=== PATIENT | male | born 1955 | race Caucasian/White ===

== ENCOUNTER 2018-09-23 09:23 | Emergency (ER) | payer OTHER, SELFPAY ==
[2018-09-23 09:35] VITALS: BP 142/96; PULSE 62; RESP 16; TEMP 37; O2SAT 97
--- NOTE | 2018-09-23 09:48 | DI.RAD.S_ITS ---
PROCEDURE: XR KNEE LT 1TO2V INDICATIONS: fall, injury, pain TECHNIQUE: 2 views of the knee were acquired. COMPARISON: None. FINDINGS: Bones: No fractures or dislocations. No suspicious bony lesions. Mild tricompartmental osteoarthritis is seen. Soft tissues: No joint effusion. No suspicious soft tissue calcifications. IMPRESSION: No acute left knee fracture or dislocation. Mild tricompartmental osteoarthritis. Dictated by: Kennedy Braun M.D. on 09/23/2018 at 10:10 Approved by: Kennedy Braun M.D. on 09/23/2018 at 10:11
--- NOTE | 2018-09-23 09:49 | DI.RAD.S_ITS ---
PROCEDURE: XR FEMUR LT MIN 2V INDICATIONS: fall, injury, pain TECHNIQUE: 2 views of the femur were acquired. COMPARISON: None. FINDINGS: Bones: Mild hip joint osteoarthritic changes are seen. No evidence of avascular necrosis. No fractures or dislocations. No suspicious bony lesions. Soft tissues: No suspicious soft tissue calcifications or masses. IMPRESSION: Left hip joint osteoarthritis. No acute left hip fracture or dislocation. No fracture is seen in proximal to mid femoral shaft. Dictated by: Kennedy Braun M.D. on 09/23/2018 at 10:03 Approved by: Kennedy Braun M.D. on 09/23/2018 at 10:10
--- NOTE | 2018-09-23 10:02 | ED_ITS ---
HPI - Extremity Injury (Lower) General Chief Complaint: Extremity Injury, Lower Stated Complaint: FELL, POSSIBLY BROKEN LEFT LEG Time Seen by Provider: 09/23/18 09:30 Source: patient and family Mode of arrival: ambulatory Limitations: no limitations History of Present Illness HPI Narrative: 63-year-old male, nonsmoker presents with a chief complaint of severe left knee pain after a fall this morning. He denies any prodromal symptoms come tripping to his fall and states that he merely slipped on a dock and in doing so been his left knee back under his weight. He now has severe pain with any range of motion or ambulation. He denies any head neck or back pain as a result of the fall. He denies any numbness, tingling or weakness. He states the majority of his pain is at the upper part of his knee. MD complaint: knee injury Onset (ago): minute(s) Type of Injury: hyperflexion Place: work Severity: moderate Relieving factors: rest Exacerbating factors: weight bearing and movement Context: fall Associated symptoms: snap/pop sensation, swelling and unable to bear weight Other symptoms: none Treatments prior to arrival: cold therapy Related Data Home Medications Medication Instructions Recorded Confirmed Antihistamine 1 tab PO PRN PRN 09/23/18 09/23/18 Glucosamine 1 tab PO DAILY 09/23/18 09/23/18 Potassium/Magnesium 1 tab PO DAILY 09/23/18 09/23/18 lisinopril 1.5 tab PO DAILY 09/23/18 09/23/18 Previous Rx's Medication Instructions Recorded hydrocodone-acetaminophen 1 tab PO Q4-6H PRN #14 tab 09/23/18 Allergies Allergy/AdvReac Type Severity Reaction Status Date / Time No Known Drug Allergies Allergy Verified 09/23/18 09:35 Review of Systems Review of Systems All systems reviewed & are unremarkable except as noted in HPI and below Constitutional Denies chills, Denies fever(s), Denies lethargy and Denies weakness Eyes Denies change in vision, Denies eye discharge, Denies irritation and Denies loss of vision ENT Ears, Nose, Mouth, and Throat: Denies change in voice, Denies neck pain and Denies sore throat Cardiovascular Denies chest pain, Denies irregular heart rhythm, Denies lightheadedness, Denies palpitations, Denies dyspnea, Denies dyspnea on exertion and Denies orthopnea Respiratory Denies cough, Denies dyspnea, Denies dyspnea on exertion and Denies wheezing Gastrointestinal Gastrointestinal: Denies abdominal pain, Denies change in bowel habits, Denies diarrhea, Denies nausea and Denies vomiting Genitourinary Denies hematuria, Denies flank pain, Denies urinary incontinence and Denies urinary urgency Musculoskeletal Reports joint swelling, Reports limited range of motion and Denies neck pain Integumentary/Breasts Denies pruritus, Denies erythema, Denies rash and Denies wounds Neurologic Denies confusion, Denies loss of vision and Denies weakness Psychiatric Denies anxiety, Denies confusion, Denies depression, Denies homicidal ideation and Denies suicidal ideation Endocrine Denies palpitations Hematologic/Lymphatic Denies easy bruising Allergic/Immunologic Denies wheezing [facility] Social History Smoking Status: Never smoker Exam Narrative Exam Narrative: 63-year-old male resting, obviously in pain, clutching his left knee Initial Vital Signs Initial Vital Signs: Vital Signs Temperature 98.6 F 09/23/18 09:35 Pulse Rate 62 09/23/18 09:35 Respiratory Rate 16 09/23/18 09:35 Blood Pressure 142/96 H 09/23/18 09:35 Pulse Oximetry 97 09/23/18 09:35 Const General: cooperative, well developed and in distress Nutritional Appearance: well nourished Orientation: alert, awake, oriented x3 and not confused [facility] Head: normal to inspection Ears: hearing grossly normal bilaterally Nose: external nose normal Face and sinus: normal facial exam Mouth: oral mucosae normal Eyes General: appearance normal, both eyes and all related structures Eyelids: eyelids normal Conjunctivae: conjunctivae normal Sclera: sclerae normal Pupils: PERRL EOM: EOM intact bilaterally Neck Neck: normal visual inspection, trachea midline, No lymphadenopathy, No midline deformity and No JVD Lymphatic: No lymphedema Chest Chest: normal inspection of the chest Resp Effort & Inspection: normal respiratory effort, able to speak in complete sentences, no respiratory distress and no use of accessory muscles Auscultation: clear to auscultation bilaterally, no rales, no rhonchi and no wheezes Cardio Rate: regular rate Rhythm: regular rhythm Heart Sounds: no click, no gallops, no murmurs and no rubs Pulses: normal peripheral pulses GI Inspection: non-distended Palpation: soft, no hepatosplenomegaly, No guarding, No pulsatile mass and No tender Auscultation: normal bowel sounds Back/Spine/Pelvis Back: No CVA tenderness Cervical Spine: cervical ROM normal and No pain with cervical ROM Thoracic/Lumbar Spine: thoracic and lumbar spine normal to inspection Skin General: no rashes or lesions noted, No jaundice and No petechiae Neuro General: alert, oriented x3, gait normal and no focal motor deficits Speech: speech normal Extrem General: full ROM, no clubbing, cyanosis or edema, no pedal edema and no calf tenderness Left lower extremity: full ROM, edema and knee (There is some pain and swelling at the superior aspect of the patella. Patient has ability to fully extend at knee) Psych Appearance: well kempt Mental Status: mental status grossly normal Attitude: cooperative Thought Content: normal and suicidality Judgment: judgment good Procedures Orthopedic Splinting/Casting Injury #1: Side: left Lower Extremity Injury Location: knee Lower Extremity Immobilizer: knee immobilizer Other Orthopedic Equipment: crutches Course Orders Ordered: ED Orders 09/23/18 11:13 CT LE LT wo con Stat Discontinued Medications Hydrocodone Bitart/Acetaminophen ([place] 5/325) 1 tab PO NOW ONE Stop: 09/23/18 10:34 Last Admin: 09/23/18 10:38 Dose: 1 tab Vital Signs - 8 hr 09/23/18 11:52 Pulse Rate 62 Respiratory Rate 18 Blood Pressure [Right Arm] 135/84 Pulse Oximetry 98 MDM - Extremity Injury (Lower) MDM Narrative Medical decision making narrative: Normal x-ray and CT would make a bony injury much less likely. There is a small amount of swelling at the superior aspect of the patella but full ability to extend at the he. There is likely involvement of the quadriceps tendon but complete rupture is incredibly unlikely. The patient has a mild amount of laxity of the MCL but patient states he tore the MCL many years ago and did not have any surgical repair. Discharge Plan Departure Patient Disposition: Home Clinical Impression: Acute internal derangement of left knee Discharge Date/Time: 09/23/18 12:28 Interventions: ED Discharge Assessment Last Done: 09/23/18 12:28 Instructions: DI for Knee Pain Activity Restrictions/Additional Instructions: *You have been diagnosed with [ left knee injury, question quadriceps tendon injury ] *What to do: *Take medications as directed *Follow up with orthopedics, call for an appointment. Let them know you were seen in the Emergency Department and that we ask that you be seen in follow up *Return to ER if you should have any new, worsening or concerning symptoms Prescriptions: New hydrocodone-acetaminophen 5-325 mg tablet 1 tab PO Q4-6H PRN (Reason: pain) Qty: 14 RF: 0 No Action Antihistamine 1 tab PO PRN PRN (Reason: Allergy Symptoms) RF: 0 Glucosamine 1 tab PO DAILY RF: 0 Potassium/Magnesium 1 tab PO DAILY RF: 0 lisinopril 1.5 tab PO DAILY RF: 0 Referrals: Cecilio Rashid MD [Physician] -
[2018-09-23] MEDS: HYDROCODONE/ACET 5/325 TABLET 1 TAB PO (10:38)
[2018-09-23 11:01] VITALS: BP 149/89; PULSE 66; RESP 16; O2SAT 98
--- NOTE | 2018-09-23 11:13 | DI.CT.S_ITS ---
PROCEDURE: CT LE LT W CON INDICATIONS: severe L knee pain, cannot ambulate, normal Xray TECHNIQUE: Noncontrast 1-1.5 mm axial sections acquired from the mid-patella to the proximal tibia, with coronal and sagittal reformats. COMPARISON: None. FINDINGS: Image quality: Excellent. Bones: No tibial, patellar or fibular fracture is seen nor is a fracture identified involving the distal femur. There is soft tissue swelling superior to the patella, and several calcifications are present in this area of soft tissue swelling. This can indicate a quadriceps tendon rupture with retraction of areas of calcific tendinitis cephalad as a result. Soft tissues: Soft tissue swelling is present above the patella, in the area of reported maximal tenderness. As discussed small scattered calcifications are present in this area of soft tissue swelling, and the quadriceps tendon cannot be identified as a discrete entity. IMPRESSION: Soft tissue swelling superior to the patella, with internal small punctate calcifications. The quadriceps tendon is not identified as a discrete normal in CT in the setting of confluent swelling, and therefore accurate assessment by this CT for presence or absence of quadriceps partial or complete tear is not possible. Depending on the clinical status followup by knee MRI to assess for quadriceps tendon rupture may be warranted. Through the joint space and involving the distal femur and the tibia and fibula and patella no definite cortical fracture is found. Dictated by: Octaviano Hall M.D. on 09/23/2018 at 11:17 Approved by: Octaviano Hall M.D. on 09/23/2018 at 11:20
[2018-09-23 11:52] VITALS: BP 135/84; PULSE 62; RESP 18; O2SAT 98
== END 2018-09-23 12:28 | disposition home or self-care (01) ==
PROVIDERS: Emergency Provider Emergency Medicine
DX: M23.92 Unspecified internal derangement of left knee (principal); W01.0XXA Fall on same level from slipping, tripping and stumbling without subsequent striking against object, initial encounter
CPT/HCPCS: 73552; 73560; 73700; 99284

== ENCOUNTER → 2018-10-12 10:07 | Outpatient (CLI) | payer OTHER, SELFPAY ==
[2018-10-12 10:29] LABS: Add Manual Diff / Slide Review NO; Basophils Percent Auto 1.2 % (0-2); Eosinophils Percent Auto 2.6 % (2-4); Hematocrit 43.4 % (41-53); Hemoglobin 14.8 g/dL (13.5-17.5); Lymphocytes Percent Auto 37.3 % (25-40); Mean Corpuscular HGB Conc 34.1 % (30-36); Mean Corpuscular Hemoglobin 31.2 PG (26-34); Mean Corpuscular Volume 91.5 fL (80-100); Monocytes Percent Auto 6.8 % (3-14); Neutrophils Absolute Auto 6100 /uL (3000-5900); Neutrophils Percent Auto 52.1 % (50-75); Platelet Count 162 X10^3/uL (150-400); Red Blood Cell Count 4.75 X10^6/uL (4.5-5.9); Red Cell Distribution Width 13.4 % (11.6-14.8); White Blood Cell Count 11.6 X10^3/uL (4.5-11.0)
== END ==
PROVIDERS: Visit Provider Orthopaedic Surgery
DX: S76.112A Strain of left quadriceps muscle, fascia and tendon, initial encounter (principal)
CPT/HCPCS: 36415; 85025

== ENCOUNTER → 2018-10-14 06:10 | Outpatient (CLI) | payer OTHER, SELFPAY ==
--- NOTE | 2018-10-14 | DI.MRI.S_ITS ---
PROCEDURE: MR KNEE LT WO CON INDICATIONS: STRAIN OF LEFT KNEE TECHNIQUE: Noncontrast sagittal PD fast spin echo and T2 fast spin echo with fat saturation, sagittal 3-D FLASH with fat saturation; coronal T1 spin echo and PD fast spin echo with fat saturation, and axial PD fast spin echo with fat saturation through the knee. COMPARISON: [facility], CR, XR KNEE LT 1TO2V, 09/23/2018, 9:49. [facility], CT, CT LE LT WO CON, 09/23/2018, 10:40. FINDINGS: Image quality: Excellent. Menisci: There is amorphous high signal intensity within the medial meniscal body, demonstrating superior and inferior articular surface extension, indicating degenerative tearing. There is linear high signal intensity obliquely traversing the posterior horn medial meniscus, demonstrating inferior articular surface extension, indicating oblique tearing. Lateral meniscus is intact. Cruciate ligaments: The anterior and posterior cruciate ligaments appear intact. Medial structures: The medial collateral ligament appears intact. Visualized portions of the pes anserinus tendons appear normal. No abnormal bursal fluid. Lateral structures: There is moderate T2 signal elevation within the lateral collateral ligament at the femoral insertion site. The long and short heads of the biceps femoris tendon appear intact. The popliteus tendon appears normal. Iliotibial band appears normal. Anterior structures: There is severe, chronic appearing thickening of the quadriceps tendon, which demonstrates severe heterogeneous T2 signal intensity throughout its visualized substance. There is a full-thickness tear of the quadriceps tendon at the patellar insertion site, with up to 6 mm of retraction of the quadriceps tendon. Moderate T2 signal elevation within the medial aspect of the patellar tendon at the patellar insertion site, as well as the distal aspect of the patellar tendon at the tibial insertion site is present. Lateral patellar subluxation is present. No femoral trochlear dysplasia or ventral trochlear prominence. No edema in the infrapatellar fat pad. Bones and cartilage: No bone marrow contusions or fractures. There is mild tricompartmental periarticular osteophyte formation. Moderate diffuse articular cartilage loss overlies the weightbearing aspects of the medial femoral condyle and medial tibial plateau. Mild diffuse articular cartilage loss overlies the weightbearing aspect of the lateral femoral condyle and lateral tibial plateau. Severe articular cartilage loss overlies the patellar apex and lateral patellar facet. Joint space: There is a large knee joint effusion, which extends anteriorly through the rupture or tendon into the prepatellar and pre-femoral space. Small o Gonzalez's cyst. Small ganglion cyst along the popliteus. Normal appearing synovial plicae are incidentally noted. IMPRESSION: 1. Full-thickness tear of the quadriceps tendon, superimposed on severe chronic tendinopathy. 2. Patellar tendinitis. 3. Medial meniscal tearing. 4. Tricompartmental osteoarthritis with associated articular cartilage loss. 5. Knee joint effusion and Gonzalez's cyst. Small ganglion cyst along the popliteus. 6. Partial-thickness lateral collateral ligament tear. Dictated by: Gael Booth M.D. on 10/14/2018 at 9:13 Approved by: Gael Booth M.D. on 10/14/2018 at 9:19
== END ==
PROVIDERS: Visit Provider Orthopaedic Surgery
DX: S76.112A Strain of left quadriceps muscle, fascia and tendon, initial encounter (principal); S83.242A Other tear of medial meniscus, current injury, left knee, initial encounter; S83.422A Sprain of lateral collateral ligament of left knee, initial encounter; M76.52 Patellar tendinitis, left knee; M17.12 Unilateral primary osteoarthritis, left knee; M25.462 Effusion, left knee; M67.462 Ganglion, left knee
CPT/HCPCS: 73721

== ENCOUNTER 2018-10-21 06:22 | Day surgery (SDC) | payer OTHER, SELFPAY ==
[2018-10-19 17:04] VITALS: BMI 38.9
[2018-10-21] MEDS: LACTATED RINGERS 1,000 ML 42 ML IV (06:58)
[2018-10-21 07:03] VITALS: BP 139/99; PULSE 76; RESP 16; TEMP 36.6; O2SAT 93; BMI 38.9
--- NOTE | 2018-10-21 07:23 | SUR.OPER ---
Addendum entered by Pavithra Gustafson R.N. 10/21/18 08:45: Large bump placed under left hip by surgeon. Original Note: Supine on padded OR bed, head on pillow, arms secured on padded arm boards at <90 degrees abduction, legs uncrossed, safety belt at thigh, tape over blanket over nonoperative leg.
--- NOTE | 2018-10-21 08:04 | PM.PREOP ---
Pre-operative Note Interval Note Pre-op Check: Yes History & Physical Reviewed by Physician and Yes Exam Performed Changes: No
--- NOTE | 2018-10-21 08:04 | PM.OP.1 ---
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 His clinical exam and MRI scan were consistent with a quad rupture. He presented for evaluation to orthopedic surgery about 3 and half weeks post injury. Surgeon: Briseida Lloyd Maintenance Operator: Juli Mcmanus Anesthesia Type: General and Peripheral nerve block Operative Notes Findings: Complete left quad rupture with torn retinaculum, adequate quality repair with adequate quad tissue Closure Type: primary Specimen(s): none sent Estimated Blood Loss (mL): 100 Blood products transfused: none Tourniquet time (min): 70 Procedure in detail: patient was brought to the operating room. He had a peripheral nerve block placed in the preoperative area for postoperative pain control. He was transferred to the OR table in the left lower extremity was prepped and draped in a standard sterile fashion after antibiotics were given and a time-out was performed. Sterile high thigh tourniquet was applied. The leg was exsanguinated and tourniquet was elevated to 250 mm of mercury. An anterior incision was made dissection was carried out through skin and subcutaneous tissues. Deep Gelpi retractors were placed. There was a complete tear in the quad and both the medial and lateral retinaculum. The soft tissues were carefully mobilized to allow good visualization of the retinaculum as well as the patellar tendon and quad tissue. Multiple stay brands of FiberWire were woven using a the jason technique into the quad tissue. Two parallel Beath pins were carefully placed through the patella and the FiberWire stitches were passed through the patella, under the patellar tendon and then tied to the inferior pole of the patella. The insertion site of the quadriceps mechanism along the patella was carefully freshened with a 15 blade prior to suture time. An additional suture anchor was also placed in the lateral aspect of the patella. The FiberWire was then woven through the quad mechanism. Multiple nonabsorbable polyester supplemental stitches were also used for both the medial and lateral retinaculum and a good quality repair was achieved. The wound was meticulously irrigated with normal saline. Tourniquet was deflated and the subcutaneous tissue was closed with a running barbed stitch. Subcuticular stitch was with a running barbed stitch. Surgical glue was used. Sterile Aquacel dressing was applied. Amando wrap was applied. Patient was placed in a long leg brace with range of motion 0-30 degrees. Complications none. 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 Fall precautions. Weightbearing as tolerated left leg.
--- NOTE | 2018-10-21 08:08 | P.OP_ITS ---
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 His clinical exam and MRI scan were consistent with a quad rupture. He presented for evaluation to orthopedic surgery about 3 and half weeks post injury. Surgeon: Briseida Lloyd Privacy Officer: Juli Mcmanus Anesthesia Type: General and Peripheral nerve block Operative Notes Findings: Complete left quad rupture with torn retinaculum, adequate quality repair with adequate quad tissue Closure Type: primary Specimen(s): none sent Estimated Blood Loss (mL): 100 Blood products transfused: none Tourniquet time (min): 70 Procedure in detail: patient was brought to the operating room. He had a peripheral nerve block placed in the preoperative area for postoperative pain control. He was transferred to the OR table in the left lower extremity was prepped and draped in a standard sterile fashion after antibiotics were given and a time-out was performed. Sterile high thigh tourniquet was applied. The leg was exsanguinated and tourniquet was elevated to 250 mm of mercury. An anterior incision was made dissection was carried out through skin and subcutaneous tissues. Deep Gelpi retractors were placed. There was a complete tear in the quad and both the medial and lateral retinaculum. The soft tissues were carefully mobilized to allow good visualization of the retinaculum as well as the patellar tendon and quad tissue. Multiple stay brands of FiberWire were woven using a the jason technique into the quad tissue. Two parallel Beath pins were carefully placed through the patella and the FiberWire stitches were passed through the patella, under the patellar tendon and then tied to the inferior pole of the patella. The insertion site of the quadriceps mechanism along the patella was carefully freshened with a 15 blade prior to suture time. An additional suture anchor was also placed in the lateral aspect of the patella. The FiberWire was then woven through the quad mechanism. Multiple nonabsorbable polyester supplemental stitches were also used for both the medial and lateral retinaculum and a good quality repair was achieved. The wound was meticulously irrigated with normal saline. Tourniquet was deflated and the subcutaneous tissue was closed with a running barbed stitch. Subcuticular stitch was with a running barbed stitch. Surgical glue was used. Sterile Aquacel dressing was applied. Amando wrap was applied. Patient was placed in a long leg brace with range of motion 0-30 degrees. Complications none. Complications: none Condition: stable Disposition: same day surgery Plan for aftercare: [employer] use of his left knee brace. Fall precautions. Weightbearing as tolerated left leg.
[2018-10-21] MEDS: CEFAZOLIN 2 GM/100 ML FROZ.PIGGY IV (08:10)
--- NOTE | 2018-10-21 08:52 | PM.PROC.1 ---
Procedures Date/Time Date of procedure: 10/21/18 Time of procedure: 07:50 General Procedure description: Ultrasound guided femoral nerve block for post op pain control after left quadriceps tendon repair surgery by Dr. Lloyd. Risk and benefits of procedure discussed with patient. ASA monitoring applied to patient. O2 given via nasal cannula. 2 mg Versed and 50 mcg fentanyl given for procedural sedation. Skin site was prepped with chlorhexidine and allowed to fully dry. Sterile gloves, mask, hat and probe cover were used to maintain sterility. 2% lidocaine and 30ga needle was used to make a small skin wheal at needle insertion site in left inguinal crease. Under ultrasound guidance, a 21ga 100mm Pajunk needle was directed toward the femoral near, just deep and lateral to the femoral artery at the level of inguinal crease. Patient reported parasthesias and muscular contraction with nerve stimulation at 0.2-0.3mV. After negative aspiration, 20 mL 0.5% ropivicaine and 10mg dexamethasone were injected around femoral nerve. Patient tolerated procedure well. Ultrasound picture was unable to be captured for records, but US imaging was used to locate inguinal structures and to avoid intravascular injection and nerve damage.
[2018-10-21] MEDS: BUPIVACAINE 0.5% W/ EPI (PF) VIAL 30 ML INJ (08:59)
[2018-10-21] MEDS: BUPIVACAINE LIPOSOME 266 MG/20 ML VIAL INJ (08:59)
[2018-10-21 10:12] VITALS: BP 128/79; PULSE 76; RESP 12; TEMP 36; O2SAT 96
[2018-10-21 10:16] VITALS: BP 137/91; PULSE 76; RESP 14; O2SAT 96
[2018-10-21 10:21] VITALS: BP 139/81; PULSE 74; RESP 12; O2SAT 95
[2018-10-21 10:47] VITALS: BP 138/91; PULSE 68; RESP 16; TEMP 36.4; O2SAT 93
--- NOTE | 2018-10-21 15:09 | SUR.PHASEII ---
Note: Delay in discharge home due initially to patient feeling he needed more time and then waiting for prescriptions to be filled.
== END 2018-10-21 11:30 | disposition home or self-care (01) ==
PROVIDERS: Visit Provider Orthopaedic Surgery
PROC: (CPT 27385; principal; 2018-10-21 07:45)
DX: S76.112A Strain of left quadriceps muscle, fascia and tendon, initial encounter (principal); G89.18 Other acute postprocedural pain; X50.1XXA Overexertion from prolonged static or awkward postures, initial encounter; W01.0XXA Fall on same level from slipping, tripping and stumbling without subsequent striking against object, initial encounter
CPT/HCPCS: 27385; 64447; C9290; J0690; J1100; J1885; J2250; J2405; J2704; J2795; J3010

== ENCOUNTER → 2018-11-19 08:53 | Outpatient (CLI) | payer OTHER, SELFPAY ==
[2018-11-19 09:20] LABS: Appearance Urine UA CLEAR; Bilirubin Urine UA NEGATIVE (NEGATIVE); Color Urine UA YELLOW; Glucose Urine UA NEGATIVE (Negative); Ketones Urine UA NEGATIVE (NEGATIVE); Leukocyte Esterase Urine UA NEGATIVE (NEGATIVE); Nitrite Urine UA NEGATIVE (Negative); Occult Blood Urine UA NEGATIVE (Negative); Protein Urine UA NEGATIVE (Negative); Specific Gravity Urine UA <=1.005 (1.000-1.035); Urobilinogen Urine UA 0.2 E.U./dL (0.2)
[2018-11-19 09:23] LABS: Add Manual Diff / Slide Review NO; Basophils Percent Auto 1.1 % (0-2); Eosinophils Percent Auto 6.6 % (2-4); Hematocrit 41.3 % (41-53); Hemoglobin 14.4 g/dL (13.5-17.5); Lymphocytes Percent Auto 37.9 % (25-40); Mean Corpuscular HGB Conc 34.9 % (30-36); Mean Corpuscular Hemoglobin 31.5 PG (26-34); Mean Corpuscular Volume 90.4 fL (80-100); Monocytes Percent Auto 7.2 % (3-14); Neutrophils Absolute Auto 4500 /uL (1500-7000); Neutrophils Percent Auto 47.2 % (50-75); Platelet Count 149 X10^3/uL (150-400); Red Blood Cell Count 4.57 X10^6/uL (4.5-5.9); Red Cell Distribution Width 13.6 % (11.6-14.8); White Blood Cell Count 9.6 X10^3/uL (4.5-11.0)
[2018-11-19 09:40] LABS: Alanine Aminotransferase 27 IU/L (21-72); Albumin 4.2 g/dL (3.5-5.0); Albumin Globulin Ratio 1.9 (1.0-2.8); Alkaline Phosphatase 57 U/L (38-126); Aspartate Aminotransferase 18 IU/L (17-59); Blood Urea Nitrogen 18 mg/dL (9-20); Calcium 9.4 mg/dL (8.4-10.2); Carbon Dioxide 24 mmol/L (22-32); Chloride 104 mmol/L (98-107); Cholesterol 190 mg/dL (140-199); Estimated Glomerular Filt Rate > 60.0 mL/min (>60); Globulin 2.2 g/dL (1.7-4.1); Glucose 109 mg/dL (80-110); HDL Cholesterol 41 mg/dL (40-60); HEMOLYSIS < 15 (0-50); LDL Cholesterol Calculated 115 mg/dL (<100); Potassium 4.4 mmol/L (3.4-5.1); Sodium 138 mmol/L (137-145); Total Protein 6.4 g/dL (6.3-8.2); Triglycerides 168 mg/dL (35-150)
[2018-11-19 10:08] LABS: Prostate Specific Antigen Scrn 0.715 ng/mL (0.1-4.0)
[2018-11-19 10:44] LABS: Thyroid Stimulating Hormone 4.24 uIU/mL (0.47-4.68)
== END ==
PROVIDERS: Family Provider Orthopaedic Surgery; PCP Family Medicine; Visit Provider Family Medicine
DX: I10 Essential (primary) hypertension (principal); Z12.5 Encounter for screening for malignant neoplasm of prostate; Z51.81 Encounter for therapeutic drug level monitoring
CPT/HCPCS: 36415; 80053; 80061; 81003; 84443; 85025; G0103

== ENCOUNTER 2019-01-18 10:08 | Emergency (ER) | payer OTHER, SELFPAY ==
[2019-01-18 10:11] VITALS: BP 174/100; PULSE 68; RESP 20; TEMP 36.7; O2SAT 97; BMI 37.3
[2019-01-18 11:50] VITALS: BP 157/90; PULSE 68; O2SAT 97
[2019-01-18] MEDS: ONDANSETRON 4 MG/2 ML INJ IV (11:58)
[2019-01-18] MEDS: SODIUM CHLORIDE 0.9% 1,000 ML 200 ML IV (11:58)
--- NOTE | 2019-01-18 12:06 | ED.ABDPAIN ---
HPI - Abdominal Pain <ASIM Sanchez - Last Filed: 01/18/19 21:46> General Chief Complaint: Abdominal Pain Stated Complaint: abd pain. vomiting Time Seen by Provider: 01/18/19 11:52 Source: patient Mode of arrival: ambulatory Limitations: no limitations History of Present Illness HPI narrative: 63-year-old male with history here for complaint of generalized upper abdominal pain and nausea vomiting over the past couple of days. Patient states that he drank some bloody Gi's a couple of days ago and states they tasted strange. No known fevers. Last bowel movement was earlier today and states was loose. He denies that other contacts have had similar symptoms. He denies any stressors or relievers of his symptoms. Denies any urinary symptoms. He has been able to tolerate some p.o. intake however is decreased due to the nausea and vomiting. He denies any trauma to the abdomen. No other concerns or complaints at this timeframe. Related Data Home Medications Medication Instructions Recorded Confirmed Glucosamine 1 tab PO DAILY 09/23/18 01/18/19 Potassium/Magnesium 1 tab PO DAILY 09/23/18 01/18/19 albuterol sulfate [Ventolin HFA] 1 puff INHALATION Q6H PRN 01/18/19 01/18/19 lisinopril 30 mg PO DAILY 01/18/19 01/18/19 Previous Rx's Medication Instructions Recorded ondansetron 4 mg PO Q6-8H PRN #8 tab 01/18/19 Allergies Allergy/AdvReac Type Severity Reaction Status Date / Time No Known Drug Allergies Allergy Verified 01/18/19 10:11 Review of Systems <ASIM Sanchez - Last Filed: 01/18/19 21:46> Eyes Denies change in vision, Denies eye discharge, Denies irritation and Denies loss of vision ENT Ears, Nose, Mouth, and Throat: Denies change in voice, Denies neck pain and Denies sore throat Cardiovascular Denies chest pain, Denies irregular heart rhythm, Denies lightheadedness, Denies palpitations, Denies dyspnea, Denies dyspnea on exertion and Denies orthopnea Respiratory Denies cough, Denies dyspnea, Denies dyspnea on exertion and Denies wheezing Gastrointestinal Gastrointestinal: Reports abdominal pain, Reports loose stools and Reports vomiting Genitourinary Denies hematuria, Denies flank pain, Denies urinary incontinence and Denies urinary urgency Musculoskeletal Denies neck pain Neurologic Denies loss of vision Endocrine Denies palpitations Allergic/Immunologic Denies wheezing PFSH <ASIM Sanchez - Last Filed: 01/18/19 21:46> Medical History Arthritis (Acute) Fracture (Acute) Knee pain (Acute) Rectal fissure (Acute) Asthma (Chronic ~1984) Hypertension (Chronic) Sciatica (Chronic ~2017) Hepatitis A (Resolved ~2012) MRSA (methicillin resistant Staphylococcus aureus) (Resolved ~2016) Surgical History Rupture of left quadriceps tendon (Acute ~09/2018) Anesthesia (Resolved) H/O hernia repair (Resolved) History of vasectomy (Resolved) Social History household members: spouse Smoking Status: Never smoker Social History household members: spouse Smoking Status: Never smoker Exam <ASIM Sanchez - Last Filed: 01/18/19 21:46> Initial Vital Signs Initial Vital Signs: Vital Signs Temperature 98.0 F 01/18/19 10:11 Pulse Rate 68 01/18/19 10:11 Respiratory Rate 20 01/18/19 10:11 Blood Pressure 174/100 H 01/18/19 10:11 Pulse Oximetry 97 01/18/19 10:11 Const General: cooperative and well developed Nutritional Appearance: well nourished Orientation: alert, awake, oriented x3 and not confused [facility] Mouth: oral mucosae normal and mucous membranes abnormal Eyes General: appearance normal, both eyes and all related structures Conjunctivae: conjunctivae normal Sclera: sclerae normal Pupils: PERRL EOM: EOM intact bilaterally Resp Effort & Inspection: normal respiratory effort, able to speak in complete sentences, no respiratory distress and no use of accessory muscles Auscultation: clear to auscultation bilaterally, no rales, no rhonchi and no wheezes Cardio Rate: regular rate Rhythm: regular rhythm Heart Sounds: no click, no gallops, no murmurs and no rubs GI Inspection: non-distended Palpation: soft, no hepatosplenomegaly, No guarding, No pulsatile mass and tender (Tenderness to epigastric area) Auscultation: normal bowel sounds Skin General: no rashes or lesions noted, No jaundice and No petechiae Neuro General: alert, oriented x3, gait normal and no focal motor deficits Speech: speech normal <Dee Dee Zuniga DO - Last Filed: 01/27/19 14:39> Initial Vital Signs Initial Vital Signs: Vital Signs Temperature 98.0 F 01/18/19 10:11 Pulse Rate 68 01/18/19 10:11 Respiratory Rate 20 01/18/19 10:11 Blood Pressure 174/100 H 01/18/19 10:11 Pulse Oximetry 97 01/18/19 10:11 Course <ASIM Sanchez - Last Filed: 01/18/19 21:46> Orders Ordered: Discontinued Medications Sodium Chloride (Normal Saline 0.9%) 1,000 mls @ 200 mls/hr IV [facility] Last Admin: 01/18/19 11:58 Dose: 200 mls/hr Ondansetron HCl (Zofran) 4 mg IV NOW ONE Stop: 01/18/19 11:53 Last Admin: 01/18/19 11:58 Dose: 4 mg Vital Signs - 8 hr 01/18/19 14:20 01/18/19 15:40 Pulse Rate 69 70 Respiratory Rate 18 20 Blood Pressure [Right Arm] 182/106 H 164/104 H Pulse Oximetry 95 97 <Dee Dee Zuniga DO - Last Filed: 01/27/19 14:39> Orders Ordered: Discontinued Medications Sodium Chloride (Normal Saline 0.9%) 1,000 mls @ 200 mls/hr IV [facility] Last Admin: 01/18/19 11:58 Dose: 200 mls/hr Ondansetron HCl (Zofran) 4 mg IV NOW ONE Stop: 01/18/19 11:53 Last Admin: 01/18/19 11:58 Dose: 4 mg Vital Signs - 8 hr 01/18/19 14:20 01/18/19 15:40 Pulse Rate 69 70 Respiratory Rate 18 20 Blood Pressure [Right Arm] 182/106 H 164/104 H Pulse Oximetry 95 97 MDM - Abdominal Pain <ASIM Sanchez - Last Filed: 01/18/19 21:46> Lab Data Result diagrams: 01/18/19 11:50 01/18/19 11:50 Lab Results 01/18/19 01/18/19 Range/Units 11:50 11:50 WBC 11.3 H (4.5-11.0) X10^3/uL RBC 5.20 (4.5-5.9) X10^6/uL Hgb 16.1 (13.5-17.5) g/dL Hct 47.6 (41-53) % MCV 91.6 (80-100) fL MCH 31.0 (26-34) PG MCHC 33.9 (30-36) % RDW 14.0 (11.6-14.8) % Plt Count 162 (150-400) X10^3/uL Neut % (Auto) 62.5 (50-75) % Lymph % (Auto) 26.4 (25-40) % Baker % (Auto) 6.9 (3-14) % Eos % (Auto) 3.2 (2-4) % Baso % (Auto) 1.0 (0-2) % Neut # (Auto) 7100 H (7128-0127) /uL Lymph # (Auto) 3000 (7245-8212) /uL Baker # (Auto) 800 (0-900) /uL Eos # (Auto) 400 (0-450) /uL Baso # (Auto) 100 (0-100) /uL Sodium 138 (137-145) mmol/L Potassium 4.4 (3.4-5.1) mmol/L Chloride 104 (98-107) mmol/L Carbon Dioxide 24 (22-32) mmol/L BUN 18 (9-20) mg/dL Creatinine 0.90 (0.66-1.25) mg/dL Estimated GFR > 60.0 (>60) mL/min BUN/Creatinine Ratio 20.0 (6-22) Glucose 113 H (80-110) mg/dL Calcium 9.7 (8.4-10.2) mg/dL Total Bilirubin 0.8 (0.2-1.3) mg/dL AST 19 (17-59) IU/L ALT 32 (21-72) IU/L Alkaline Phosphatase 56 (38-126) U/L Total Protein 7.0 (6.3-8.2) g/dL Albumin 4.6 (3.5-5.0) g/dL Globulin 2.4 (1.7-4.1) g/dL Albumin/Globulin Ratio 1.9 (1.0-2.8) Lipase 91 (23-300) U/L Point of care testing: Urine Dip Bedside Urine Glucose Negative Bedside Urine Bilirubin - Negative Bedside Urine Ketone - Negative Urine Specific [place] 1.015 Bedside Urine Occult Blood - Negative Bedside Urine pH 6.0 Bedside Urine Protein - Negative Bedside Urine Urobilinogen - Negative Bedside Urine Nitrite - Negative Bedside Urine Leukocytes - Negative Esterase MDM Narrative Medical decision making narrative: CBC shows elevated white count of 11 0.5 kg and mildly elevated neutrophils. Otherwise is unremarkable. Chemistry panel was obtained was negative. Lipase was negative. Urinalysis was negative for urinary tract infection. CT the abdomen was obtained and shows enlarged lymph nodes to the mesentery larger than what would be considered normal for mesentery adenitis. Discussed the case with Dr. Marmolejo who recommended admission and surgery consult. Patient was not comfortable with admission at this timeframe and decided that he would like to go home. Will treat for viral illness at this point with supportive care with [id number] Tylenol as needed for any discomfort and Zofran for nausea vomiting. Slowly advance diet as tolerated plenty of fluids. Discussed case with surgery Dr. Benedict who states will follow up with patient here in the next few days. Patient is to call Dr. Benedict office and schedule follow-up appointment. For any worsening symptoms return to the emergency room. <Dee Dee Zuniga, DO - Last Filed: 01/27/19 14:39> Lab Data Lab Results 01/18/19 01/18/19 Range/Units 11:50 11:50 WBC 11.3 H (4.5-11.0) X10^3/uL RBC 5.20 (4.5-5.9) X10^6/uL Hgb 16.1 (13.5-17.5) g/dL Hct 47.6 (41-53) % MCV 91.6 (80-100) fL MCH 31.0 (26-34) PG MCHC 33.9 (30-36) % RDW 14.0 (11.6-14.8) % Plt Count 162 (150-400) X10^3/uL Neut % (Auto) 62.5 (50-75) % Lymph % (Auto) 26.4 (25-40) % Baker % (Auto) 6.9 (3-14) % Eos % (Auto) 3.2 (2-4) % Baso % (Auto) 1.0 (0-2) % Neut # (Auto) 7100 H (6851-9541) /uL Lymph # (Auto) 3000 (7044-9492) /uL Baker # (Auto) 800 (0-900) /uL Eos # (Auto) 400 (0-450) /uL Baso # (Auto) 100 (0-100) /uL Sodium 138 (137-145) mmol/L Potassium 4.4 (3.4-5.1) mmol/L Chloride 104 (98-107) mmol/L Carbon Dioxide 24 (22-32) mmol/L BUN 18 (9-20) mg/dL Creatinine 0.90 (0.66-1.25) mg/dL Estimated GFR > 60.0 (>60) mL/min BUN/Creatinine Ratio 20.0 (6-22) Glucose 113 H (80-110) mg/dL Calcium 9.7 (8.4-10.2) mg/dL Total Bilirubin 0.8 (0.2-1.3) mg/dL AST 19 (17-59) IU/L ALT 32 (21-72) IU/L Alkaline Phosphatase 56 (38-126) U/L Total Protein 7.0 (6.3-8.2) g/dL Albumin 4.6 (3.5-5.0) g/dL Globulin 2.4 (1.7-4.1) g/dL Albumin/Globulin Ratio 1.9 (1.0-2.8) Lipase 91 (23-300) U/L Point of care testing: Urine Dip Bedside Urine Glucose Negative Bedside Urine Bilirubin - Negative Bedside Urine Ketone - Negative Urine Specific [place] 1.015 Bedside Urine Occult Blood - Negative Bedside Urine pH 6.0 Bedside Urine Protein - Negative Bedside Urine Urobilinogen - Negative Bedside Urine Nitrite - Negative Bedside Urine Leukocytes - Negative Esterase Discharge Plan Departure Patient Disposition: Home Clinical Impression: Lymphadenopathy, mesenteric Abdominal pain Qualifiers: Abdominal location: upper abdomen, unspecified Qualified Code(s): R10.10 - Upper abdominal pain, unspecified Discharge Date/Time: 01/18/19 15:57 Interventions: ED Discharge Assessment Last Done: 01/18/19 15:57 Instructions: DI for Abdominal Pain-Adult Activity Restrictions/Additional Instructions: Laboratory results today show mildly elevated white count and neutrophils otherwise is unremarkable. CT scan of the abdomen shows enlarged lymph nodes to the mesentery area of unknown etiology. Recommend follow-up with surgery call number at number provided schedule follow-up appointment here in the next few days for further evaluation. Nausea vomiting presents as a viral illness. Use Zofran as prescribed. Use [id number] Tylenol as needed for any discomfort. Plenty of fluids and rest low the advanced diet as tolerated. For any worsening symptoms return to the emergency room. Prescriptions: New ondansetron 4 mg tablet,disintegrating 4 mg PO Q6-8H PRN (Reason: nausea and vomiting) Qty: 8 RF: 0 No Action Glucosamine 1 tab PO DAILY RF: 0 Potassium/Magnesium 1 tab PO DAILY RF: 0 Ventolin HFA 90 mcg/actuation HFA aerosol inhaler 1 puff Inhalation Q6H PRN (Reason: Shortness Of Breath Or Wheezing) RF: 0 lisinopril 20 mg tablet 30 mg PO DAILY RF: 0 Referrals: Gustavo Benedict MD [Physician] - Loretta Marmolejo DO [Primary Care Provider] - <Dee Dee Zuniga DO - Last Filed: 01/27/19 14:39> Cosign ED Attending Cosignature Attestation: I was immediately available in the department for consultation. This documentation has been reviewed and I agree with assessment and plan. Supervised by Dee Dee Zuniga DO
[2019-01-18 12:07] LABS: Alanine Aminotransferase 32 IU/L (21-72); Albumin 4.6 g/dL (3.5-5.0); Albumin Globulin Ratio 1.9 (1.0-2.8); Alkaline Phosphatase 56 U/L (38-126); Aspartate Aminotransferase 19 IU/L (17-59); Bilirubin Total 0.8 mg/dL (0.2-1.3); Blood Urea Nitrogen 18 mg/dL (9-20); Calcium 9.7 mg/dL (8.4-10.2); Carbon Dioxide 24 mmol/L (22-32); Chloride 104 mmol/L (98-107); Estimated Glomerular Filt Rate > 60.0 mL/min (>60); Globulin 2.4 g/dL (1.7-4.1); Glucose 113 mg/dL (80-110); HEMOLYSIS < 15 (0-50); Lipase 91 U/L (23-300); Potassium 4.4 mmol/L (3.4-5.1); Sodium 138 mmol/L (137-145)
[2019-01-18 12:10] LABS: Add Manual Diff / Slide Review NO; Basophils Absolute Auto 100 /uL (0-100); Eosinophils Absolute Auto 400 /uL (0-450); Eosinophils Percent Auto 3.2 % (2-4); Hematocrit 47.6 % (41-53); Hemoglobin 16.1 g/dL (13.5-17.5); Lymphocytes Absolute Auto 3000 /uL (1100-4500); Lymphocytes Percent Auto 26.4 % (25-40); Mean Corpuscular HGB Conc 33.9 % (30-36); Mean Corpuscular Volume 91.6 fL (80-100); Monocytes Absolute Auto 800 /uL (0-900); Monocytes Percent Auto 6.9 % (3-14); Neutrophils Absolute Auto 7100 /uL (1500-7000); Neutrophils Percent Auto 62.5 % (50-75); Platelet Count 162 X10^3/uL (150-400); White Blood Cell Count 11.3 X10^3/uL (4.5-11.0)
--- NOTE | 2019-01-18 12:28 | DI.CT.S_ITS ---
PROCEDURE: CT ABDOMEN PELVIS W CON INDICATIONS: Nausea vomiting with upper abdominal pain TECHNIQUE: After the administration of intravenous contrast, 5 mm thick sections acquired from the diaphragm to the symphysis. 5 mm coronal and sagittal reformats were acquired. For radiation dose reduction, the following was used: automated exposure control, adjustment of mA and/or kV according to patient size. COMPARISON: None. FINDINGS: Image quality: Excellent. ABDOMEN: Lung bases: Within the right posterolateral costophrenic angle, there is a partially calcified nodule seen on series 3 image 11 that measures 5 mm. Lung bases otherwise appear clear. The heart size is within normal limits. Solid organs: Liver is normal in size and enhancement. Gallbladder wall does not appear thickened. Biliary system is non dilated. Pancreas enhances normally. Spleen is normal in size and enhancement. Calcified granulomas are seen within the spleen. No adrenal nodules. Kidneys demonstrate normal size and enhancement, without hydronephrosis. Peritoneum and bowel: Bowel loops demonstrate normal wall thickness and caliber. No free fluid or air. Incidental note is made of a normal-appearing appendix. Nodes and vessels: Enlarged mesenteric lymph nodes are seen, with surrounding inflammatory change within the central mesentery. The largest measures 4.8 x 1.2 cm. An additional notable mesenteric lymph node measures 2.3 x 2.3 cm. No enlarged retroperitoneal lymph nodes can be seen. Aorta and inferior vena cava are normal in size. Miscellaneous: A mild periumbilical hernia is seen, containing fat. PELVIS: Genitourinary: Bladder wall thickness is normal. Miscellaneous: No inguinal hernias or adenopathy. Bones: No suspicious bony lesions. No vertebral body compression fractures. Age-appropriate bony degenerative changes are seen. IMPRESSION: Abnormally enlarged mesenteric lymph nodes, with surrounding inflammatory change. Differential diagnosis in chronic inflammation and neoplasm (such as lymphoma). Incidental note is made of: Prior granulomatous exposure Normal appendix Fat-containing periumbilical hernia Dictated by: Vitaly Singh M.D. on 01/18/2019 at 11:36 Approved by: Vitaly Singh M.D. on 01/18/2019 at 11:40
[2019-01-18 13:00] VITALS: BP 164/99; PULSE 61; O2SAT 97
--- NOTE | 2019-01-18 13:50 | ED_ITS ---
HPI - Abdominal Pain <ASIM Sanchez - Last Filed: 01/18/19 21:46> General Chief Complaint: Abdominal Pain Stated Complaint: abd pain. vomiting Time Seen by Provider: 01/18/19 11:52 Source: patient Mode of arrival: ambulatory Limitations: no limitations History of Present Illness HPI narrative: 63-year-old male with history here for complaint of generalized upper abdominal pain and nausea vomiting over the past couple of days. Patient states that he drank some bloody Gi's a couple of days ago and states they tasted strange. No known fevers. Last bowel movement was earlier today and states was loose. He denies that other contacts have had similar symptoms. He denies any stressors or relievers of his symptoms. Denies any urinary symptoms. He has been able to tolerate some p.o. intake however is decreased due to the nausea and vomiting. He denies any trauma to the abdomen. No other concerns or complaints at this timeframe. Related Data Home Medications Medication Instructions Recorded Confirmed Glucosamine 1 tab PO DAILY 09/23/18 01/18/19 Potassium/Magnesium 1 tab PO DAILY 09/23/18 01/18/19 albuterol sulfate [Ventolin HFA] 1 puff INHALATION Q6H PRN 01/18/19 01/18/19 lisinopril 30 mg PO DAILY 01/18/19 01/18/19 Previous Rx's Medication Instructions Recorded ondansetron 4 mg PO Q6-8H PRN #8 tab 01/18/19 Allergies Allergy/AdvReac Type Severity Reaction Status Date / Time No Known Drug Allergies Allergy Verified 01/18/19 10:11 Review of Systems <ASIM Sanchez - Last Filed: 01/18/19 21:46> Eyes Denies change in vision, Denies eye discharge, Denies irritation and Denies loss of vision ENT Ears, Nose, Mouth, and Throat: Denies change in voice, Denies neck pain and Denies sore throat Cardiovascular Denies chest pain, Denies irregular heart rhythm, Denies lightheadedness, Denies palpitations, Denies dyspnea, Denies dyspnea on exertion and Denies orthopnea Respiratory Denies cough, Denies dyspnea, Denies dyspnea on exertion and Denies wheezing Gastrointestinal Gastrointestinal: Reports abdominal pain, Reports loose stools and Reports vomiting Genitourinary Denies hematuria, Denies flank pain, Denies urinary incontinence and Denies urinary urgency Musculoskeletal Denies neck pain Neurologic Denies loss of vision Endocrine Denies palpitations Allergic/Immunologic Denies wheezing PFSH <ASIM Sanchez - Last Filed: 01/18/19 21:46> Medical History Arthritis (Acute) Fracture (Acute) Knee pain (Acute) Rectal fissure (Acute) Asthma (Chronic ~1984) Hypertension (Chronic) Sciatica (Chronic ~2017) Hepatitis A (Resolved ~2012) MRSA (methicillin resistant Staphylococcus aureus) (Resolved ~2016) Surgical History Rupture of left quadriceps tendon (Acute ~09/2018) Anesthesia (Resolved) H/O hernia repair (Resolved) History of vasectomy (Resolved) Social History household members: spouse Smoking Status: Never smoker Social History household members: spouse Smoking Status: Never smoker Exam <ASIM Sanchez - Last Filed: 01/18/19 21:46> Initial Vital Signs Initial Vital Signs: Vital Signs Temperature 98.0 F 01/18/19 10:11 Pulse Rate 68 01/18/19 10:11 Respiratory Rate 20 01/18/19 10:11 Blood Pressure 174/100 H 01/18/19 10:11 Pulse Oximetry 97 01/18/19 10:11 Const General: cooperative and well developed Nutritional Appearance: well nourished Orientation: alert, awake, oriented x3 and not confused [facility] Mouth: oral mucosae normal and mucous membranes abnormal Eyes General: appearance normal, both eyes and all related structures Conjunctivae: conjunctivae normal Sclera: sclerae normal Pupils: PERRL EOM: EOM intact bilaterally Resp Effort & Inspection: normal respiratory effort, able to speak in complete sentences, no respiratory distress and no use of accessory muscles Auscultation: clear to auscultation bilaterally, no rales, no rhonchi and no wheezes Cardio Rate: regular rate Rhythm: regular rhythm Heart Sounds: no click, no gallops, no murmurs and no rubs GI Inspection: non-distended Palpation: soft, no hepatosplenomegaly, No guarding, No pulsatile mass and tender (Tenderness to epigastric area) Auscultation: normal bowel sounds Skin General: no rashes or lesions noted, No jaundice and No petechiae Neuro General: alert, oriented x3, gait normal and no focal motor deficits Speech: speech normal <Dee Dee Zuniga DO - Last Filed: 01/27/19 14:39> Initial Vital Signs Initial Vital Signs: Vital Signs Temperature 98.0 F 01/18/19 10:11 Pulse Rate 68 01/18/19 10:11 Respiratory Rate 20 01/18/19 10:11 Blood Pressure 174/100 H 01/18/19 10:11 Pulse Oximetry 97 01/18/19 10:11 Course <ASIM Sanchez - Last Filed: 01/18/19 21:46> Orders Ordered: Discontinued Medications Sodium Chloride (Normal Saline 0.9%) 1,000 mls @ 200 mls/hr IV CONT [facility] Last Admin: 01/18/19 11:58 Dose: 200 mls/hr Ondansetron HCl (Zofran) 4 mg IV NOW ONE Stop: 01/18/19 11:53 Last Admin: 01/18/19 11:58 Dose: 4 mg Vital Signs - 8 hr 01/18/19 14:20 01/18/19 15:40 Pulse Rate 69 70 Respiratory Rate 18 20 Blood Pressure [Right Arm] 182/106 H 164/104 H Pulse Oximetry 95 97 <Dee Dee Zuniga DO - Last Filed: 01/27/19 14:39> Orders Ordered: Discontinued Medications Sodium Chloride (Normal Saline 0.9%) 1,000 mls @ 200 mls/hr IV CONT [facility] Last Admin: 01/18/19 11:58 Dose: 200 mls/hr Ondansetron HCl (Zofran) 4 mg IV NOW ONE Stop: 01/18/19 11:53 Last Admin: 01/18/19 11:58 Dose: 4 mg Vital Signs - 8 hr 01/18/19 14:20 01/18/19 15:40 Pulse Rate 69 70 Respiratory Rate 18 20 Blood Pressure [Right Arm] 182/106 H 164/104 H Pulse Oximetry 95 97 MDM - Abdominal Pain <ASIM Sanchez - Last Filed: 01/18/19 21:46> Lab Data Result diagrams: 01/18/19 11:50 01/18/19 11:50 Lab Results 01/18/19 01/18/19 Range/Units 11:50 11:50 WBC 11.3 H (4.5-11.0) X10^3/uL RBC 5.20 (4.5-5.9) X10^6/uL Hgb 16.1 (13.5-17.5) g/dL Hct 47.6 (41-53) % MCV 91.6 (80-100) fL MCH 31.0 (26-34) PG MCHC 33.9 (30-36) % RDW 14.0 (11.6-14.8) % Plt Count 162 (150-400) X10^3/uL Neut % (Auto) 62.5 (50-75) % Lymph % (Auto) 26.4 (25-40) % Hand % (Auto) 6.9 (3-14) % Eos % (Auto) 3.2 (2-4) % Baso % (Auto) 1.0 (0-2) % Neut # (Auto) 7100 H (4479-4885) /uL Lymph # (Auto) 3000 (7437-3294) /uL Hand # (Auto) 800 (0-900) /uL Eos # (Auto) 400 (0-450) /uL Baso # (Auto) 100 (0-100) /uL Sodium 138 (137-145) mmol/L Potassium 4.4 (3.4-5.1) mmol/L Chloride 104 (98-107) mmol/L Carbon Dioxide 24 (22-32) mmol/L BUN 18 (9-20) mg/dL Creatinine 0.90 (0.66-1.25) mg/dL Estimated GFR > 60.0 (>60) mL/min BUN/Creatinine Ratio 20.0 (6-22) Glucose 113 H (80-110) mg/dL Calcium 9.7 (8.4-10.2) mg/dL Total Bilirubin 0.8 (0.2-1.3) mg/dL AST 19 (17-59) IU/L ALT 32 (21-72) IU/L Alkaline Phosphatase 56 (38-126) U/L Total Protein 7.0 (6.3-8.2) g/dL Albumin 4.6 (3.5-5.0) g/dL Globulin 2.4 (1.7-4.1) g/dL Albumin/Globulin Ratio 1.9 (1.0-2.8) Lipase 91 (23-300) U/L Point of care testing: Urine Dip Bedside Urine Glucose Negative Bedside Urine Bilirubin - Negative Bedside Urine Ketone - Negative Urine Specific [place] 1.015 Bedside Urine Occult Blood - Negative Bedside Urine pH 6.0 Bedside Urine Protein - Negative Bedside Urine Urobilinogen - Negative Bedside Urine Nitrite - Negative Bedside Urine Leukocytes - Negative Esterase MDM Narrative Medical decision making narrative: CBC shows elevated white count of 11 0.5 kg and mildly elevated neutrophils. Otherwise is unremarkable. Chemistry panel was obtained was negative. Lipase was negative. Urinalysis was negative for urinary tract infection. CT the abdomen was obtained and shows enlarged lymph nodes to the mesentery larger than what would be considered normal for mesentery adenitis. Discussed the case with Dr. Marmolejo who recommended admission and surgery consult. Patient was not comfortable with admission at this timeframe and decided that he would like to go home. Will treat for viral illness at this point with supportive care with [id number] Tylenol as needed for any discomfort and Zofran for nausea vomiting. Slowly advance diet as tolerated plenty of fluids. Discussed case with surgery Dr. Benedict who states will follow up with patient here in the next few days. Patient is to call Dr. Benedict office and schedule follow-up appointment. For any worsening symptoms return to the emergency room. <Dee Dee Zuniga, DO - Last Filed: 01/27/19 14:39> Lab Data Lab Results 01/18/19 01/18/19 Range/Units 11:50 11:50 WBC 11.3 H (4.5-11.0) X10^3/uL RBC 5.20 (4.5-5.9) X10^6/uL Hgb 16.1 (13.5-17.5) g/dL Hct 47.6 (41-53) % MCV 91.6 (80-100) fL MCH 31.0 (26-34) PG MCHC 33.9 (30-36) % RDW 14.0 (11.6-14.8) % Plt Count 162 (150-400) X10^3/uL Neut % (Auto) 62.5 (50-75) % Lymph % (Auto) 26.4 (25-40) % Hand % (Auto) 6.9 (3-14) % Eos % (Auto) 3.2 (2-4) % Baso % (Auto) 1.0 (0-2) % Neut # (Auto) 7100 H (5327-3114) /uL Lymph # (Auto) 3000 (8618-1526) /uL Hand # (Auto) 800 (0-900) /uL Eos # (Auto) 400 (0-450) /uL Baso # (Auto) 100 (0-100) /uL Sodium 138 (137-145) mmol/L Potassium 4.4 (3.4-5.1) mmol/L Chloride 104 (98-107) mmol/L Carbon Dioxide 24 (22-32) mmol/L BUN 18 (9-20) mg/dL Creatinine 0.90 (0.66-1.25) mg/dL Estimated GFR > 60.0 (>60) mL/min BUN/Creatinine Ratio 20.0 (6-22) Glucose 113 H (80-110) mg/dL Calcium 9.7 (8.4-10.2) mg/dL Total Bilirubin 0.8 (0.2-1.3) mg/dL AST 19 (17-59) IU/L ALT 32 (21-72) IU/L Alkaline Phosphatase 56 (38-126) U/L Total Protein 7.0 (6.3-8.2) g/dL Albumin 4.6 (3.5-5.0) g/dL Globulin 2.4 (1.7-4.1) g/dL Albumin/Globulin Ratio 1.9 (1.0-2.8) Lipase 91 (23-300) U/L Point of care testing: Urine Dip Bedside Urine Glucose Negative Bedside Urine Bilirubin - Negative Bedside Urine Ketone - Negative Urine Specific [place] 1.015 Bedside Urine Occult Blood - Negative Bedside Urine pH 6.0 Bedside Urine Protein - Negative Bedside Urine Urobilinogen - Negative Bedside Urine Nitrite - Negative Bedside Urine Leukocytes - Negative Esterase Discharge Plan Departure Patient Disposition: Home Clinical Impression: Lymphadenopathy, mesenteric Abdominal pain Qualifiers: Abdominal location: upper abdomen, unspecified Qualified Code(s): R10.10 - Upper abdominal pain, unspecified Discharge Date/Time: 01/18/19 15:57 Interventions: ED Discharge Assessment Last Done: 01/18/19 15:57 Instructions: DI for Abdominal Pain-Adult Activity Restrictions/Additional Instructions: Laboratory results today show mildly elevated white count and neutrophils otherwise is unremarkable. CT scan of the abdomen shows enlarged lymph nodes to the mesentery area of unknown etiology. Recommend follow-up with surgery call number at number provided schedule follow-up appointment here in the next few days for further evaluation. Nausea vomiting presents as a viral illness. Use Zofran as prescribed. Use [id number] Tylenol as needed for any discomfort. Plenty of fluids and rest low the advanced diet as tolerated. For any worsening symptoms return to the emergency room. Prescriptions: New ondansetron 4 mg tablet,disintegrating 4 mg PO Q6-8H PRN (Reason: nausea and vomiting) Qty: 8 RF: 0 No Action Glucosamine 1 tab PO DAILY RF: 0 Potassium/Magnesium 1 tab PO DAILY RF: 0 Ventolin HFA 90 mcg/actuation HFA aerosol inhaler 1 puff Inhalation Q6H PRN (Reason: Shortness Of Breath Or Wheezing) RF: 0 lisinopril 20 mg tablet 30 mg PO DAILY RF: 0 Referrals: Gustavo Benedict MD [Physician] - Loretta Marmolejo DO [Primary Care Provider] - <Dee Dee Zuniga DO - Last Filed: 01/27/19 14:39> Cosign ED Attending Cosignature Attestation: I was immediately available in the department for consultation. This documentation has been reviewed and I agree with assessment and plan. Supervised by Dee Dee Zuniga DO
[2019-01-18 14:20] VITALS: BP 182/106; PULSE 69; RESP 18; O2SAT 95
[2019-01-18 15:40] VITALS: BP 164/104; PULSE 70; RESP 20; O2SAT 97
--- NOTE | 2019-02-09 11:12 | PC.NURSE ---
late note from 01/18/19. 1000 of ns 1000ml infused at 1500.
== END 2019-01-18 15:57 | disposition home or self-care (01) ==
PROVIDERS: Emergency Medicine; Emergency Provider Nurse Practitioner Family; PCP Family Medicine
DX: R59.0 Localized enlarged lymph nodes (principal); R10.10 Upper abdominal pain, unspecified
CPT/HCPCS: 36591; 74177; 80053; 81003; 83690; 85025; 96361; 96374; 99283; 99285; J2405; Q9967

== ENCOUNTER 2019-03-14 06:41 | Day surgery (SDC) | payer OTHER, SELFPAY ==
--- NOTE | 2019-03-14 | PATH_ITS ---
[facility] Accession Number: [id number] . 01 Material submitted: . PART A: cecum - CECAL POLYP PART B: colon - COLON POLYP AT 40CM . 01 Clinical history: . A: POLYP X3 . 02 Diagnosis: A. Cecum, Polyps x3, Biopsies: Tubular adenoma in one of multiple fragments. Inflammatory polyp in two fragments. Additional levels were examined. . B. Colon, Polyp at 40 cm, Biopsy: Colonic mucosa with surface hyperplastic-type changes. Negative for dysplasia and malignancy. MRV/03/16/2019 . 02 Electronically signed: . Tiffany Mcclain MD, Pathologist NPI- [id number] . 01 Gross description: . Part A: CECAL POLYP: Received in formalin are multiple fragment(s) of platt, soft tissue measuring 0.1 x 0.1 x 0.1 cm to 0.2 x 0.2 x 0.2 cm which is entirely submitted and submitted entirely in 1 cassette(s) Part B: COLON POLYP AT 40CM: Received in formalin are 2 fragment(s) of platt, soft tissue measuring 0.1 x 0.1 x 0.1 cm to 0.2 x 0.2 x 0.1 cm which is entirely submitted and submitted entirely in 1 cassette(s) /DMC /DMC . 02 Pathologist provided ICD-10: D12.0 . 02 CPT . 302072, [id number] Performed at: 01 [facility] [address] [id number] MD Bryson Cardona MD Phone: [phone] Performed at: 02 [facility] [address] [place], [place] [id number] MD Tiffany Mcclain MD Phone: [phone]
[2019-03-14] MEDS: SODIUM CHLORIDE 0.9% 1,000 ML 200 ML IV (07:12)
[2019-03-14 07:24] VITALS: BP 136/80; PULSE 72; RESP 15; TEMP 36.6; O2SAT 94; BMI 38.2
--- NOTE | 2019-03-14 07:58 | PM.PREOP ---
Pre-operative Note Interval Note History & Physical reviewed/Exam performed by Physician: Yes Changes to H&P: No ASA Class (for procedural sedation): III
--- NOTE | 2019-03-14 08:13 | PC.NURSE ---
Patient declined sedation medication. Relaxed throughout procedure, tolerated well.
--- NOTE | 2019-03-14 08:34 | PM.OP.ENDO ---
Operative Date/Time/Diagnoses Date of procedure: 03/14/19 Time of procedure: 08:34 Pre-op diagnosis: Screening exam Post-op diagnosis: same (Multiple small polyps. One diverticulum seen.) Procedure & Clinicians Study performed: Colonoscopy with cold biopsies Same procedure as scheduled: Yes Indications: Screening. Last exam over 10 years ago Procedure Notes SCOAP/Timeout: Performed Procedure in detail: The patient was placed in the left lateral decubitus position and underwent IV sedation directed by the surgeon consisting of fentanyl and Versed. Digital exam was remarkable for an increased sphincter tone. There are no palpable masses. I could not appreciate his prostate well but what I could feel did not feel enlarged.. The scope was inserted and advanced through the rectum into the sigmoid, descending, transverse, and ascending colon. One diverticulum was seen as I progressed.. The cecum was reached identified by the ileocecal valve and the appendiceal opening. There were 3 small polyps in the region the cecum all of which were biopsied and completely removed. The scope was gradually brought out. One other Polyp was found at 40 cm from the anal verge. The scope ultimately was retroflexed in the rectum. The appearance was remarkable for small internal hemorrhoids. There was no ulceration. There was some minor scarring.. The scope was removed and the patient tolerated the procedure well. what appeared to be a small sentinel pile was noted as I slowly came through the anus. The prep was very good. Scope withdrawal time: 10 minutes which excludes bx Sedation minutes: 0 (Patient did not desire sedation) Findings: diverticulosis (Single diverticulum was seen) and polyp (All under 5 mm) Specimen(s): other (Polyps) Complications: none Recommendations: Colonscopy in 5 years Plan for aftercare: CT scan to be performed Follow up: as needed (After CT scan) Disposition: same day surgery
[2019-03-14 08:38] VITALS: BP 137/86; PULSE 64; RESP 15; TEMP 36.1; O2SAT 99
[2019-03-14 09:13] LABS: Blood Urea Nitrogen 18 mg/dL (9-20); Estimated Glomerular Filt Rate > 60.0 mL/min (>60); Triglycerides 179 mg/dL (35-150)
[2019-03-14 09:29] LABS: Free T3, Triiodothyronine Free 4.98 pg/mL (2.77-5.27); Free T4, Direct Thyroxine 1.25 ng/dL (0.78-2.19)
[2019-03-14 09:43] LABS: Thyroid Stimulating Hormone 4.93 uIU/mL (0.47-4.68)
== END 2019-03-14 08:46 ==
LOC: ENDO 06:43
PROVIDERS: PCP Family Medicine; Visit Provider Specialist
PROC: 0DJD8ZZ Inspection of Lower Intestinal Tract, Via Natural or Artificial Opening Endoscopic (ICD-10-PCS; CPT 45378; principal; 2019-03-14 07:45)
DX: Z12.11 Encounter for screening for malignant neoplasm of colon (principal); J45.909 Unspecified asthma, uncomplicated; I10 Essential (primary) hypertension; K57.30 Diverticulosis of large intestine without perforation or abscess without bleeding; D12.0 Benign neoplasm of cecum
CPT/HCPCS: 45380; 82565; 84439; 84443; 84478; 84481; 84520

== ENCOUNTER → 2019-03-29 06:57 | Outpatient (CLI) | payer OTHER, SELFPAY ==
--- NOTE | 2019-03-29 09:20 | DI.CT.S_ITS ---
PROCEDURE: CT ABDOMEN PELVIS W CON INDICATIONS: Follow-up enlarged mesenteric lymph nodes TECHNIQUE: After the administration of intravenous contrast, 5 mm thick sections acquired from the diaphragm to the symphysis. 5 mm coronal and sagittal reformats were acquired. For radiation dose reduction, the following was used: automated exposure control, adjustment of mA and/or kV according to patient size. COMPARISON: [facility], CT, CT ABDOMEN PELVIS W CON, 01/18/2019, 12:15. FINDINGS: Image quality: Excellent. ABDOMEN: Lung bases: Calcified 6 mm granuloma right lateral costophrenic angle. Lung bases are otherwise clear. Heart size is normal. Solid organs: Liver is normal in size and enhancement. Gallbladder is normal. Biliary system is non dilated. Pancreas enhances normally. No adrenal nodules. Kidneys demonstrate normal size and enhancement, without hydronephrosis. The spleen is enlarged, mildly diffusely hypodense, and contains multiple rounded calcifications consistent with granulomas. Spleen length measures 17.3 cm, increased from 15.5 cm. Peritoneum and bowel: Bowel loops demonstrate normal wall thickness and caliber. No free fluid or air. Nodes and vessels: Hazy fat centrally within the small bowel mesentery. Moderately enlarged mesenteric lymph nodes are present, most are similar size compared to the prior study. One of the largest lymph nodes is in the right abdomen and measures 1.9 cm in short axis (series 2 image 54). Tiny retroperitoneal lymph nodes are seen. No retroperitoneal or mesenteric adenopathy by size criteria. Aorta and inferior vena cava are normal in size. Miscellaneous: Small fat-containing umbilical hernia.. PELVIS: Genitourinary: Bladder wall thickness is normal. Prostate size is normal. Miscellaneous: No inguinal hernias. Nonenlarged, but mildly prominent bilateral inguinal lymph nodes, stable compared to the prior exam. Bones: No suspicious bony lesions. No vertebral body compression fractures. Multilevel disc degeneration throughout the thoracic and lumbar spine. IMPRESSION: 1. Persistent mesenteric haziness and adenopathy. 2. Increasing splenomegaly with changes of granulomatous disease. 3. Combination of findings is suspicious for myeloproliferative disease. 4. Stable right lower lung lobe granuloma. Dictated by: Lennie Haley M.D. on 03/29/2019 at 10:17 Approved by: Lennie Haley M.D. on 03/29/2019 at 10:27
== END ==
PROVIDERS: PCP Family Medicine; Visit Provider Specialist
DX: R59.0 Localized enlarged lymph nodes (principal); R16.1 Splenomegaly, not elsewhere classified
CPT/HCPCS: 74177; Q9967

== ENCOUNTER 2019-04-11 11:12 | Day surgery (SDC) | payer OTHER, SELFPAY ==
[2019-04-06 14:43] VITALS: BMI 39.3
[2019-04-11] VITALS (12 sets, daily range): BP systolic 78–152; BP diastolic 49–94; PULSE 68–93; RESP 10–20; TEMP 36.1–36.9; O2SAT 88–99; BMI 39.3
--- NOTE | 2019-04-11 | PATH_ITS ---
[facility] Accession Number: [id number] . 01 Material submitted: . PART A: lymph node - LYMPH NODE PART B: lymph node - LYMPH NODE FOR FROZEN SECTION . 01 Clinical history: . A: Suspicious lymph node for lymphoma B: Lymph node tissue sent fresh for frozen section: 2.5 x1.5 x1cm portion of soft red-platt tissue. A portion is taken for frozen section and smear. Dr. Benedict will take a portion separately for RPMI and flow cytometry. . 02 Frozen section diagnosis: . FS1: DIAGNOSTIC TISSUE OBTAINED, SUSPICIOUS FOR LYMPHOMA. . Results given to Dr. Karlos Benedict after patient identification by Dr. Karlos Mcclain. 04/11/2019. Frozen section was performed at [facility], [address] [place] [address]. ERICH/VAIBHAV . 01 Diagnosis: PRELIMINARY DIAGNOSIS: . A. 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 01 Comment: Flow cytometric evaluation performed on an RPMI-preserved specimen from this patient designated mesenteric lymph node biopsy identifies two immunophenotypically-distinct abnormal B-cell populations, one with increased cell size. See separate [facility] flow report [id number] for complete details. Due to the complexity of this surgical case, it will be forwarded for complete Hematopathology evaluation to the [facility] ([facility]). An Addendum report will be issued upon receipt of the [facility]. . 01 Electronically signed: . Estela Gonzalez MD, Pathologist NPI- [id number] . 01 Gross description: . (A) Received in formalin, labeled suspicious lymph node for lymphoma, is a piece of platt lymph node (3.0 x 2.3 x 1.2 cm) received in two pieces. Serially sectioned and entirely submitted in cassettes A1-A4. (B) Received in formalin, labeled lymph node tissue sent for frozen section, is a 2.5 x 1.5 x 1.0 cm portion of soft red-platt tissue, which is previously received unfixed for frozen section performed at [facility]. A portion was taken for FS + smears. Dr. Benedict will take a portion separately for RPMI/flow cytometry. The remaining tissue from frozen section is entirely submitted in cassette B1, and the remaining tissue is serially sectioned and entirely submitted in cassettes B2-B4. . Per the requisition, two wet slides and two dry slides were also received. ([id number]) /MRV . 01 Pathologist provided ICD-10: C85.90 . 01 CPT . 300961 Performed at: 01 [facility] [address] [place] [address], [place], [place] [id number] MD Bryson Cardona MD Phone: [phone] Performed at: [address] [facility] [address] [place], [place] [id number] MD Tiffany Mcclain MD Phone: [phone]
[2019-04-11] MEDS: LACTATED RINGERS 1,000 ML 42 ML IV (11:49)
--- NOTE | 2019-04-11 13:22 | PM.HP.1 ---
History of Present Illness Date Patient Seen: 04/11/19 Time Patient Seen: 13:22 Chief complaint: [id number] Narrative: Patient is a gentleman who has been followed for enlarged nodes in his mesentery. Repeat CT scan showed an increase in size of some of them and he is brought in for lymph node biopsy. I had initially planned to do a groin biopsy of a small visible node but he would rather prefer to go with the money is which is in the mesentery rather than have 2 procedures and multiple incisions in different parts of his body. Patient History Medical History CARMELLA on CPAP (Acute) Arthritis (Acute) Fracture (Acute) Knee pain (Acute) Rectal fissure (Acute) Asthma (Chronic ~1984) Hypertension (Chronic) Sciatica (Chronic ~2017) Hepatitis A (Resolved ~2012) MRSA (methicillin resistant Staphylococcus aureus) (Resolved ~2016) Surgical History Rupture of left quadriceps tendon (Acute ~09/2018) Anesthesia (Resolved) H/O hernia repair (Resolved) History of vasectomy (Resolved) Social History household members: spouse Smoking Status: Never smoker alcohol intake: current Family & Social History Social History: household members spouse Tobacco & Substance use: Smoking Status Never smoker alcohol intake current alcohol intake frequency a few times a week Substance Use Type marijuana Meds Home Medications Medication Instructions Recorded Confirmed Type Glucosamine 2 tab PO DAILY 09/23/18 04/11/19 History Potassium/Magnesium 3 tab PO DAILY 09/23/18 04/11/19 History albuterol sulfate 1 puff INHALATION Q6H PRN 01/18/19 04/11/19 History lisinopril 30 mg PO DAILY 01/18/19 04/11/19 History Allergies Allergy/AdvReac Type Severity Reaction Status Date / Time No Known Drug Allergies Allergy Verified 02/28/19 16:06 Review of Systems Review of Systems All systems reviewed & are unremarkable except as noted in HPI and below Musculoskeletal Comments: Had a knee replacement on the left Exam Vital Signs (past 8 hours): - 04/11/19 11:37 Temperature 97.9 F Pulse Rate 76 Respiratory Rate 18 Blood Pressure 152/94 H Pulse Oximetry 96 Oxygen Delivery Method Room Air Narrative Exam Narrative: Operative no apparent distress. Lungs are clear to auscultation. Heart regular rate and rhythm without murmur gallop. Abdomen is protuberant soft. He has an incarcerated umbilical hernia. No palpable masses. He does have a small rash in his left groin. No palpable nodes however. Alert and oriented x3. Assessment & Plan Assessment & Plan narrative: Patient with mesenteric lymphadenopathy equal. He also has enlarged spleen and an umbilical hernia that is incarcerated. Will proceed to laparoscopic evaluation of his lymph nodes and possible open laparotomy. Pathology is available for frozen section. I have discussed the procedures with him. He will have to take it easy for about 4-6 weeks because the umbilical hernia. All questions were answered. He wishes to proceed. We may not get a definitive answer or the answer may be benign which would be great.
--- NOTE | 2019-04-11 13:24 | PM.PREOP ---
Pre-operative Note Interval Note History & Physical reviewed/Exam performed by Physician: Yes Changes to H&P: No
[2019-04-11] MEDS: CEFAZOLIN VIAL 3 GM in SODIUM CHLORIDE 0.9% 100 ML 200 ML IV (13:50)
--- NOTE | 2019-04-11 14:09 | SUR.OPER ---
Supine on padded OR bed, head on pillow, arms secured on padded arm boards at <90 degrees abduction, legs uncrossed, safety belt at thigh, tape over blanket over lower legs.
[2019-04-11] MEDS: BUPIVACAINE 0.5% (PF) VIAL 30 ML INJ (14:23)
--- NOTE | 2019-04-11 15:37 | PM.OP.1 ---
Operative Date/Time/Diagnoses Date of procedure: 04/11/19 Time of procedure: 15:37 Pre-op diagnosis: Mesenteric lymphadenitis with splenic enlargement. Rule out lymphoma Post-op diagnosis: same (Probable lymphoma based on frozen section) Procedure & Clinicians Procedure: Laparoscopic mesenteric lymph node biopsy Same procedure as scheduled: Yes Indications: Diagnostic Surgeon: Gustavo Benedict Click Yes if Unassisted: Yes Anesthesia Type: General Operative Notes Findings: Removed enlarged node measuring about 4 x 4 by 2 cm. Chylous fluid within the abdomen small amount Closure Type: primary Specimen(s): other (Mesenteric node. Slide sent dry and Alcohol fixed, specimen for flow cytometry, permanent section, frozen) Prosthetic devices, grafts, tissues, transplants, or devices: None Estimated Blood Loss (mL): 5 Procedure in detail: The patient is placed supine on the operating room table underwent general endotracheal anesthesia. He was prepped and draped in the usual fashion. Local anesthetic was infiltrated at the lower edge of the umbilicus and incision made. It was carried into the subcu fat. The patient was known to have an incarcerated hernia. The fat within that hernia it was from surrounding structures and reduced. The fascial edge was cleared of tissue. Sutures 1. Ethibond were placed and the son cannula was inserted. The abdomen is insufflated and 2 additional ports were placed. These were 5 mm ports. One was placed between the umbilicus and pubis and the other in the left lower quadrant. I examined the small bowel and identified a rather large node in the mesentery of the small bowel. I incised over the node using cautery. The thing blunt dissection and cautery I began to do detect the out and then using Harmonic scalpel completed the dissection. The node was placed in a bag and removed without difficulty through the umbilical port. specimens were distributed and frozen section was awaited. While waiting for it we the I could not see the spleen due to the large amount of omentum. The liver was normal in color. Was not enlarged. The mesenteric defect had a small amount of Chyle leaking that with the Harmonic scalpel I was able to control that. There was no bleeding. Once the frozen section returned the air was removed from the peritoneum. The stay sutures at the umbilicus were tied and additional 0 Ethibond was placed between them. The wounds were irrigated. Four Vicryl was used to close the skin with interrupted subcuticular stitches. At the 0 Vicryl was used to tack the umbilicus down to the fascia and then closed the subcu. Steri-Strips and Band-Aids were applied. The patient was awakened taken to recur dear in good condition. There were no apparent problems. Complications: none Condition: stable Disposition: PACU Plan for aftercare: Follow-up in the office
[2019-04-11] MEDS: ONDANSETRON 4 MG/2 ML INJ IV (15:56)
[2019-04-11] MEDS: ALBUTEROL 2.5 MG/3 ML NEB (ADULT) INH (16:00)
[2019-04-11] MEDS: BENZOCAINE/MENTHOL 1 LOZ PKT 1 EACH PO (16:05)
--- NOTE | 2019-04-11 16:15 | SUR.PHASEI ---
Addendum entered by Siva Kendrick 04/11/19 16:15: Correction: assumed care Original Note: Assumed cre
[2019-04-11] MEDS: fentaNYL 100 MCG/2 ML INJ 50 MCG IV (16:18)
--- NOTE | 2019-04-11 16:32 | SUR.PHASEI ---
Pt coughing continuously, medicated with albuterol neb and cepacol lozenge. Pillow placed for splinting. Dr. Dillon evaluated pt and gave iv lidocaine for cough. Water proved. Coughing improved but not resolved.
[2019-04-11] MEDS: OXYCODONE/ACETAMINOPHEN 5/325 TABLET 1 TAB PO (16:53)
--- NOTE | 2019-04-11 16:53 | SUR.PHASEII ---
brought in at pt's bedside. Dressing to abdomen c/d/i.
== END 2019-04-11 17:39 | disposition home or self-care (01) ==
PROVIDERS: PCP Family Medicine; Visit Provider Specialist
PROC: (CPT 49320; principal; 2019-04-11 12:45)
PROC: (CPT 49000; 2019-04-11 12:45)
DX: C85.90 Non-Hodgkin lymphoma, unspecified, unspecified site (principal); G47.33 Obstructive sleep apnea (adult) (pediatric); J45.909 Unspecified asthma, uncomplicated; I10 Essential (primary) hypertension; R16.1 Splenomegaly, not elsewhere classified; K42.0 Umbilical hernia with obstruction, without gangrene
CPT/HCPCS: 49321; 87070; 87075; 87205; J0690; J1100; J2405; J2704; J3010; J7613

== ENCOUNTER 2019-05-04 15:05 | Day surgery (SDC) | payer OTHER, SELFPAY ==
[2019-05-01 13:24] VITALS: BMI 39.3
--- NOTE | 2019-05-04 | DI.RAD.S_ITS ---
PROCEDURE: XR CHEST 1V INDICATIONS: POST PORT A CATH TECHNIQUE: One view of the chest was acquired. COMPARISON: [facility], [place], XR CHEST 1V, 05/04/2019, 17:25. FINDINGS: Surgical changes and devices: There is a left chest port with tip projecting over the superior vena cava. There is mild kinking of the most superior aspect of the catheter, which may be projectional. Lungs and pleura: Lungs are clear. No pleural effusions or pneumothorax. There is mild prominence of the pulmonary vasculature. Mediastinum: Mediastinal contours appear normal. Heart size is normal. Bones and chest wall: No suspicious bony lesions. Overlying soft tissues appear unremarkable. IMPRESSION: Left chest port with tip projecting over the superior vena cava. There is mild kinking of the most superior aspect of the catheter, which may be projectional. Dictated by: Flakito Reilly M.D. on 05/04/2019 at 19:11 Approved by: Flakito Reilly M.D. on 05/04/2019 at 19:14
--- NOTE | 2019-05-04 | DI.RAD.S_ITS ---
PROCEDURE: XR CHEST 1V INDICATIONS: PORT A CATH INSERTION TECHNIQUE: One view of the chest was acquired. COMPARISON: [facility], [place], PET NECK TO MID THIGH, 04/28/2019, 9:04. FINDINGS: Single saved intraoperative fluoroscopy image of the upper left chest and thoracic inlet demonstrates the placement of a left upper chest port with distal catheter tip projecting over the superior vena cava. IMPRESSION: Single saved intraoperative fluoroscopy image of the upper left chest and thoracic inlet demonstrates the placement of a left upper chest port with distal catheter tip projecting over the superior vena cava. Dictated by: Flakito Reilly M.D. on 05/04/2019 at 17:54 Approved by: Flakito Reilly M.D. on 05/04/2019 at 17:57
[2019-05-04 15:32] VITALS: BMI 39.3
[2019-05-04 15:34] VITALS: BP 135/88; PULSE 76; RESP 15; TEMP 36.6; O2SAT 97
--- NOTE | 2019-05-04 16:12 | PM.HP.1 ---
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 He is about to start chemotherapy and is here for port placement. Patient is status post a fairly recent left knee procedure, an abdominal exploration laparoscopically with a node biopsy. Patient History Medical History Lymphoma (Acute) Arthritis (Acute) Fracture (Acute) Knee pain (Acute) CARMELLA on CPAP (Acute) Rectal fissure (Acute) Asthma (Chronic ~1984) Hypertension (Chronic) Sciatica (Chronic ~2017) Hepatitis A (Resolved ~2012) MRSA (methicillin resistant Staphylococcus aureus) (Resolved ~2016) Surgical History Hx of laparoscopy (Acute 04/11/19) Rupture of left quadriceps tendon (Acute ~09/2018) Anesthesia (Resolved) H/O hernia repair (Resolved) History of vasectomy (Resolved) Social History household members: spouse Smoking Status: Never smoker alcohol intake: current Family & Social History Social History: household members spouse Tobacco & Substance use: Smoking Status Never smoker alcohol intake current alcohol intake frequency a few times a week Substance Use Type marijuana Meds Home Medications Medication Instructions Recorded Confirmed Type Glucosamine 2 tab PO DAILY 09/23/18 05/04/19 History Potassium/Magnesium 3 tab PO DAILY 09/23/18 05/04/19 History albuterol sulfate 1 puff INHALATION Q6H PRN 01/18/19 05/04/19 History lisinopril 30 mg PO DAILY 01/18/19 05/04/19 History Allergies Allergy/AdvReac Type Severity Reaction Status Date / Time No Known Drug Allergies Allergy Verified 05/04/19 15:25 Review of Systems Review of Systems Patient has no heart or breathing issues at this time. No seizures or blackouts. No black or bloody bowel movements. No dysuria or hematuria. Exam Vital Signs (past 8 hours): - 05/04/19 15:34 Temperature 97.8 F Pulse Rate 76 Respiratory Rate 15 Blood Pressure 135/88 Pulse Oximetry 97 Oxygen Delivery Method Room Air Narrative Exam Narrative: Co Operative no apparent distress. Overweight. Lungs are clear to auscultation. No rales or rhonchi. Heart regular rate and rhythm without murmur gallop. Abdomen is protuberant and soft. Nontender. No hernias at his umbilicus. Assessment & Plan Assessment & Plan narrative: Patient with lymphoma for Port-A-Cath. I have discussed the procedure and rationale with him. Risks of bleeding, infection which is ongoing risk, lung collapse and DVT with possible pulmonary embolism were all discussed. He appears to understand and wishes to proceed.
--- NOTE | 2019-05-04 16:16 | PM.PREOP ---
Pre-operative Note Interval Note History & Physical reviewed/Exam performed by Physician: Yes Changes to H&P: No
[2019-05-04] MEDS: CEFAZOLIN 2 GM/100 ML FROZ.PIGGY IV (16:40)
--- NOTE | 2019-05-04 17:05 | SUR.OPER ---
Supine on padded OR bed, head on pillow, arms secured on padded arm boards at <90 degrees abduction, legs uncrossed, safety belt at thigh, tape over blanket over lower legs.
[2019-05-04] MEDS: HEPARIN 5,000 UNIT, SODIUM CHLORIDE 0.9% 50 ML IV (17:11)
[2019-05-04] MEDS: LIDOCAINE 1% 30 ML INJ INJ (17:15)
[2019-05-04 17:45] VITALS: BP 134/85; PULSE 84; RESP 15; TEMP 36.2
[2019-05-04 17:50] VITALS: BP 141/82; PULSE 79; RESP 17; O2SAT 98
--- NOTE | 2019-05-04 17:52 | P.OP_ITS ---
Operative Date/Time/Diagnoses Date of procedure: 05/04/19 Time of procedure: 17:45 Pre-op diagnosis: Lymphoma Post-op diagnosis: same Procedure & Clinicians Procedure: Placement of a Port-A-Cath for IV chemotherapy Same procedure as scheduled: Yes Indications: Port-A-Cath for IV access for chemotherapy Surgeon: Gustavo Benedict Click Yes if Unassisted: Yes Anesthesia Type: General Operative Notes Findings: Tip appeared to be in the distal SVC at completion but postop in the recovery room it was in the upper SVC. The patient had no evidence of pneumothorax. Closure Type: primary Specimen(s): none sent Prosthetic devices, grafts, tissues, transplants, or devices: Port-A-Cath Estimated Blood Loss (mL): 10 Procedure in detail: The patient is placed supine on the operating room table and underwent general LMA anesthesia. A roll was placed between his shoulders. Patient prepped and draped in the usual fashion. Local anesthetic was infiltrated in field block fashion beneath the left clavicle. A transverse incision was made and dissected down into the deep subcu fat. The patient is placed in Trendelenburg and a needle inserted on the 1st attempt into the subclavian vein. Guidewire was passed and the needle was removed. I had to back the wire out as I was having difficulty getting it to go in the proper direction into the SVC. It was is though is hung up at the junction of the subclavian and the jugular vein. I attempted to pass the dilator alone over the wire but that not succeed in getting much beyond the clavicle. I removed the dilator and the guidewire and once again placed a needle into the subclavian vein on a single attempt. The guidewire passed easily into the superior vena cava as I monitored it with fluoroscopy. The needle was removed. The port was put together flushed and placed in the pocket. It was tapered to appropriate length. The dilator and introducer were passed over the guidewire. This was monitored with fluoroscopy. The guidewire and dilator were removed leaving intr oduced per in place. The catheter was passed through the introducer to be in the SVC. The port was aspirated and flushed with heparinized saline 100 units/cc. The patient had had a reaction at his last procedure to what I believe was the chlorhexidine under the Tegaderm. We carefully removed all of the chlorhexidine possible and put a skin protectant product on the skin and applied a Tegaderm. Patient was awakened extubated taken recovery area in good condition. Complications: none Condition: stable Disposition: PACU
[2019-05-04 18:04] VITALS: BP 137/91; PULSE 72; RESP 8; TEMP 36; O2SAT 97
[2019-05-04] MEDS: HYDROCODONE/ACET 5/325 TABLET 1 TAB PO (18:37)
[2019-05-04 18:38] VITALS: BP 141/91; PULSE 72; RESP 16; TEMP 36.7; O2SAT 97
== END 2019-05-04 18:45 | disposition home or self-care (01) ==
PROVIDERS: Family Provider Internal Medicine Hematology & Oncology; PCP Family Medicine; Visit Provider Specialist
PROC: (CPT 36561; principal; 2019-05-04 16:15)
DX: C85.90 Non-Hodgkin lymphoma, unspecified, unspecified site (principal); G47.33 Obstructive sleep apnea (adult) (pediatric); I10 Essential (primary) hypertension
CPT/HCPCS: 36561; 71045; 76000; C1788; J0690; J1100; J1644; J2405; J2704; J3010

== ENCOUNTER → 2019-07-25 16:55 | Outpatient (CLI) | payer OTHER, SELFPAY | PROVIDERS: Family Provider Internal Medicine Hematology & Oncology; PCP Family Medicine; Visit Provider Specialist | DX: C85.90 Non-Hodgkin lymphoma, unspecified, unspecified site (principal); K61.1 Rectal abscess; Z79.899 Other long term (current) drug therapy | CPT/HCPCS: 87070; 87075; 87077; 87186; 87205 ==

== ENCOUNTER 2019-07-31 14:15 | Day surgery (SDC) | payer OTHER, SELFPAY ==
[2019-07-27 14:52] VITALS: BMI 39.3
[2019-07-31] VITALS (10 sets, daily range): BP systolic 111–144; BP diastolic 71–95; PULSE 65–76; RESP 8–16; TEMP 36.1–36.6; O2SAT 96–98; BMI 38.9
--- NOTE | 2019-07-31 14:33 | PM.PREOP ---
Pre-operative Note Interval Note History & Physical reviewed/Exam performed by Physician: Yes Changes to H&P: No H&P completed within 30 days and has changed as indicated here:: See recent office notes for H&P. He had successful drainage for an acute abscess. He is feeling much better. This needs definitive care as best possible so that he can continue chemotherapy.
[2019-07-31] MEDS: LACTATED RINGERS 1,000 ML 42 ML IV (14:45)
[2019-07-31] MEDS: LACTATED RINGERS 1,000 ML 100 ML IV (15:10)
[2019-07-31] MEDS: GABAPENTIN 600 MG TABLET 300 MG PO (15:11)
[2019-07-31] MEDS: ACETAMINOPHEN 325 MG TABLET 975 MG PO (15:11)
--- NOTE | 2019-07-31 16:38 | SUR.OPER ---
Prone on padded OR bed, head in foam head support, gel chest rolls, gel pad under knees, pillow under lower legs, toes free of pressure, arms secured on padded arm boards at <90 degrees abduction. Safety belt at thigh.
[2019-07-31] MEDS: BUPIVACAINE 0.5% W/ EPI (PF) VIAL 30 ML INJ (16:48)
[2019-07-31] MEDS: DIBUCAINE 1% OINT 28 GM 1 APPLIC TOP (16:49)
--- NOTE | 2019-07-31 17:16 | PM.OP.1 ---
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 He is undergoing chemotherapy for lymphoma at this time. Surgeon: Gustavo Benedict Click Yes if Unassisted: Yes Anesthesia Type: General Operative Notes Findings: Intersphincteric abscess. The cavity is much smaller than it was. Able to identify a midline internal sphincter opening. Because of the amount of muscle that would be need to be divided a silastic seton was placed so that chemotherapy could continue and we will deal with the seton once that is completed. Closure Type: not applicable Specimen(s): none sent Applied: other (Silastic seton) Estimated Blood Loss (mL): 5 Blood products transfused: none Procedure in detail: Patient was placed active prone on the operating room table after undergoing general endotracheal anesthesia. Digital exam was unremarkable except for some mild induration posterior left lateral. [place] was inserted and circumferential anoscopic exam performed. The only finding was the prior I and D site and the appearance of a fistula opening in the midline. I a inserted a probe into the abscess cavity and the cavity easily led down to the midline. I was able to cannulate the fistulous opening. It appeared there was a fair amount of sphincter over the probe. Therefore I chose to place a seton. Attained a silastic vessel loop and was able to thread it through the cavity and fistula tract to the fistulous opening. I tied it and removed the excess. The abscess was irrigated and the patient had Nupercainal on Gelfoam placed in the anal verge. Dressing was applied the patient was flipped back onto his stretcher extubated and taken recovery area in good condition Complications: none Post-operative Condition: stable Disposition: PACU
[2019-07-31] MEDS: fentaNYL 100 MCG/2 ML INJ 50 MCG IV ×2 (17:26→17:34)
--- NOTE | 2019-07-31 17:27 | SUR.PHASEI ---
Bandaid removed from bridge of nose by patient. Superficial skin loss noted to nose.
--- NOTE | 2019-07-31 17:37 | SUR.PHASEI ---
ASSUMED CARE OF PT AT THIS TIME FROM JAZMINE SIMON. PT ALERT, SITTING UP AND TALKING TO RN AT BEDSIDE. PT DENIES ANY NAUSEA AT THIS TIME AND TOLERATING WATER AT THIS TIME. PT REPORTING PAIN IS 4/10 AT THIS TIME.
--- NOTE | 2019-07-31 17:37 | SUR.PHASEI ---
Report given to Carol
[2019-07-31] MEDS: OXYCODONE IR 5 MG TABLET PO ×2 (17:51→18:21)
== END 2019-07-31 18:57 | disposition home or self-care (01) ==
PROVIDERS: Family Provider Internal Medicine Hematology & Oncology; PCP Family Medicine; Visit Provider Specialist
PROC: (CPT 46020; principal; 2019-07-31 15:45)
DX: K61.1 Rectal abscess (principal); C85.90 Non-Hodgkin lymphoma, unspecified, unspecified site
CPT/HCPCS: 46020; J0330; J2704; J3010

== ENCOUNTER 2019-10-02 09:37 | Day surgery (SDC) | payer OTHER, SELFPAY ==
[2019-09-27 13:06] VITALS: BMI 39.3
[2019-10-02 11:19] VITALS: BMI 39.7
[2019-10-02 11:28] VITALS: BP 139/80; PULSE 57; RESP 15; TEMP 36.3; O2SAT 98
[2019-10-02] MEDS: LACTATED RINGERS 1,000 ML 100 ML IV (11:42)
--- NOTE | 2019-10-02 12:22 | PM.HP.1 ---
History of Present Illness History of Present Illness Date Patient Seen: 10/02/19 Time Patient Seen: 12:00 Chief complaint: [id number] Narrative: Patient is a gentleman here for completion fistulotomy or indicated procedures and excision of a tag on his scalp. The patient had a fistulotomy and drainage of a it abscess while he was on chemotherapy for lymphoma. His chemotherapy has completed. He is here now for completion of his treatment of his anal process. Patient History Medical History Arthritis (Acute) Asthma (Chronic ~1984) Fracture (Acute) Hepatitis A (Resolved ~2012) Hypertension (Chronic) Knee pain (Acute) Lymphoma (Acute) MRSA (methicillin resistant Staphylococcus aureus) (Resolved ~2016) CARMELLA on CPAP (Acute) Port-A-Cath in place (Acute 05/04/19) Rectal fissure (Acute) Sciatica (Chronic ~2017) Surgical History Anesthesia (Resolved) H/O hernia repair (Resolved) History of surgery (Acute 07/31/19) History of vasectomy (Resolved) Hx of laparoscopy (Acute 04/11/19) Rupture of left quadriceps tendon (Acute ~09/2018) Status post incision and drainage (Acute 07/25/19) Family & Social History Social History: household members spouse Tobacco & Substance use: Smoking Status Never smoker alcohol intake current alcohol intake frequency a few times a week Substance Use Type marijuana Meds Home Medications and Allergies Home Medications Medication Instructions Recorded Confirmed Type albuterol sulfate 1 puff INHALATION Q6H PRN 01/18/19 10/02/19 History lisinopril 10 mg PO DAILY 01/18/19 10/02/19 History aspirin 325 mg PO DAILY 07/31/19 10/02/19 History metoprolol tartrate 50 mg PO BID 07/31/19 10/02/19 History Allergies Allergy/AdvReac Type Severity Reaction Status Date / Time No Known Drug Allergies Allergy Verified 10/02/19 11:17 Review of Systems Review of Systems ROS Unobtainable: All systems reviewed & are unremarkable except as noted in HPI and below Constitutional Comments: He gained a great deal of weight on steroids which were part of his treatment for his lymphoma. Exam Vital Signs (past 8 hours): - 10/02/19 11:28 Temperature 97.3 F L Pulse Rate 57 L Respiratory Rate 15 Blood Pressure 139/80 Pulse Oximetry 98 Oxygen Delivery Method Room Air Narrative Exam Narrative: Cooperative no apparent distress. Eyes are nonicteric. Lungs are clear. Heart regular rate and rhythm without murmur gallop. Abdomen is protuberant soft. Seton is in place . He is alert and oriented. Assessment & Plan Assessment & Plan narrative: Patient for completion of the treatment of his perianal abscess last fistula. I have discussed the procedure with him including risks of bleeding, infection, incontinence, drainage. He appears to understand wishes to proceed.
--- NOTE | 2019-10-02 12:26 | PM.PREOP ---
Pre-operative Note Interval Note History & Physical reviewed/Exam performed by Physician: Yes Changes to H&P: No
--- NOTE | 2019-10-02 12:44 | SUR.OPER ---
Lateral on padded OR bed with fitzpatrick bag positioner, head on pillow, gel axillary roll in place, bottom leg bent with gel pad under knee to foot, upper leg straight and supported with pillows. Operative arm secured in shoulder positioning suspension device. non-operative arm secured on padded arm board. Safety belt at hip, tape over blanket securing lower legs.
[2019-10-02] MEDS: BUPIVACAINE 0.5% W/ EPI (PF) VIAL 30 ML INJ (13:01)
[2019-10-02 13:25] VITALS: BP 127/77; PULSE 61; RESP 15; TEMP 36.3; O2SAT 97
--- NOTE | 2019-10-02 13:28 | PM.OP.1 ---
Operative Date/Time/Diagnoses Date of procedure: 10/02/19 Time of procedure: 13:28 Pre-op diagnosis: Fistula in ANO. Small tag on his scalp posteriorly. Post-op diagnosis: same Procedure & Clinicians Procedure: Excision of skin tag. Anal exam under anesthesia with completion fistulotomy and removal of seton. Same procedure as scheduled: Yes Indications: Patient with a seton placed at the time of treatment of perianal abscess. He was under chemotherapy at the time and a definitive operation was delayed until it was completed. Surgeon: Gustavo Benedict Click Yes if Unassisted: Yes Anesthesia Type: General Operative Notes Findings: Small amount of external sphincter involved with the fistula. Closure Type: not applicable Specimen(s): none sent Prosthetic devices, grafts, tissues, transplants, or devices: None Estimated Blood Loss (mL): 3 Blood products transfused: none Procedure in detail: The patient is placed in lithotomy after undergoing general LMA anesthesia. He was prepped and draped in the usual fashion. Digital exam was remarkable only for a palpable seton. Circumferential exam was unremarkable except for the seton. Using the seton as a guide a probe was placed in the fistula tract. The tissues were divided using cautery. This opened the fistulous tract. The base was cauterized. Local anesthetic was infiltrated in the region. Anesthetic with on Telfa was placed in the wound. Dressing was applied. Patient was moved to his bed and placed on his side. The scalp lesion was prepped the chlorhexidine alcohol. Local anesthetic was infiltrated under it. It was excised and the base cauterized. Band-Aid was applied. Patient was extubated and taken recovery area in good condition. Complications: none Post-operative Condition: stable Disposition: PACU
--- NOTE | 2019-10-02 13:31 | SUR.PHASEII ---
pt arrived directly from OR to Phase II via stretcher. Bedside report received from JAZMINE Lerner. pt in stable condition, vss. pt alert and talking to RN. Pt denies any pain/discomfort or nausea.
[2019-10-02 13:55] VITALS: BP 123/73; PULSE 56; RESP 15; TEMP 36; O2SAT 98
== END 2019-10-02 15:00 | disposition home or self-care (01) ==
PROVIDERS: Family Provider Internal Medicine Hematology & Oncology; PCP Family Medicine; Visit Provider Specialist
PROC: (CPT 45990; principal; 2019-10-02 11:15)
PROC: (CPT 46275; 2019-10-02 11:15)
DX: K60.3 Anal fistula (principal); L91.8 Other hypertrophic disorders of the skin
CPT/HCPCS: 46275; 11200; 94762; J2250; J2405; J2704; J3010

== ENCOUNTER → 2019-11-02 08:58 | Outpatient (CLI) | payer OTHER, SELFPAY ==
--- NOTE | 2019-11-10 08:56 | PM.PFT.1 ---
Pulmonary Function Test Referral & Results Date Patient Seen: 11/02/19 Requesting provider: Susanne Stuart Results: The spirometry demonstrates an FVC of 3.50 L which is 69% of predicted. The FEV1 was measured at 1.63 L which is 42% of predicted. The FEV1/FVC ratio was 47 which is 61% of predicted. Following the administration of bronchodilator there was a 40% improvement in FEV1 and a 246% improvement in FEF 25-75%. Lung volumes show an SVC of 3.44 L which is 68% of predicted. The diffusing capacity was measured at 25.0 for which is 71% of predicted. No hemoglobin value was provided, so no correction for potential anemia could be made, if appropriate. The maximum voluntary ventilation was reduced Interpretation: This study demonstrates moderately severe obstructive lung disease with evidence of significant benefit following bronchodilator There is also akpm-ke-ndnedxcz restrictive lung disease present based on reduction in SVC There is also mild to moderate disease at the capillary alveolar level based on reduction in diffusing capacity
== END ==
PROVIDERS: PCP Internal Medicine; Visit Provider Internal Medicine
DX: J98.4 Other disorders of lung (principal)
CPT/HCPCS: 94060; 94726; 94729

== ENCOUNTER → 2019-11-13 08:13 | Outpatient (CLI) | payer OTHER, SELFPAY ==
--- NOTE | 2019-11-13 | DI.CT.S_ITS ---
PROCEDURE: CT CHEST HIGH RESOLUTION INDICATIONS: DYSPNEA TECHNIQUE: Noncontrast 1.0 and 5.0 mm thick contiguous axial sections from the pulmonary apex to the posterior costophrenic angles, with 7 mm thick coronal and sagittal MIP reformats. 1 mm thick dynamic expiratory images acquired through the upper, mid, and lower lungs. 1.0 mm thick axial sections acquired from the emir to the posterior costophrenic angles in the prone end-inspiration position. For radiation dose reduction, the following was used: automated exposure control, adjustment of mA and/or kV according to patient size. COMPARISON: [facility], CT, CT ABDOMEN PELVIS W CON, 01/18/2019, 12:15. [facility], CT, CT CHEST ABDOMEN PELVIS WITH CONTRAST, 07/03/2019, 7:43. FINDINGS: Image quality: Excellent. Lungs: Mild central mid and lower lung peribronchial thickening without definite airway occlusions, or bronchiectasis. No endobronchial or endotracheal nodules. Trace atelectasis in the lingula. There is 8mm solidly calcified nodule at the right lateral costophrenic sulcus. No change compared to prior studies. No other lung nodules or masses. No changes of fibrosis or honeycombing. No cystic or emphysematous change. Pleura: No pleural effusions or pneumothorax. Mediastinum: Heart size is normal. No pericardial effusion. Dense, extensive subcarinal and right hilar calcifications indicating healed granulomatous disease. No other mediastinal adenopathy. Thoracic aorta and central pulmonary arteries are normal in size. Esophagus is normal in caliber. Bones and chest wall: A left IJ Mediport. No suspicious bony lesions. No vertebral body compression fractures. Abdomen: Multiple small calcifications in the spleen consistent with granulomas. Visualized upper abdominal solid organs and bowel loops appear otherwise normal. IMPRESSION: 1. No convincing evidence of interstitial lung disease. 2. Evidence of granulomatous disease in the right lung, right hilar and mediastinal nodes, and spleen. Dictated by: Lennie Haley M.D. on 11/13/2019 at 14:13 Approved by: Lennie Haley M.D. on 11/13/2019 at 14:25
== END ==
PROVIDERS: PCP Internal Medicine; Visit Provider Internal Medicine
DX: R06.00 Dyspnea, unspecified (principal)
CPT/HCPCS: 71250

== ENCOUNTER → 2019-11-21 08:35 | Oncology outpatient (ONC) | payer OTHER, SELFPAY ==
[2019-11-21 09:08] VITALS: BP 125/76; PULSE 59; RESP 16; TEMP 36.9; O2SAT 96
[2019-11-21] MEDS: COSYNTROPIN 0.25 MG VIAL IV (09:14)
[2019-11-21 11:55] LABS: Cortisol Basline for Stim. 9.24 ug/dL
[2019-11-21 11:55] LABS: Cortisol 60 MIN Post Stim. 31.1 ug/dL
[2019-11-21 11:56] LABS: Cortisol 30 MIN Post Stim. 26.8 ug/dL
[2019-11-23 14:29] LABS: Adrenocorticotropic Hormone 16 pg/mL (6-50)
== END ==
PROVIDERS: PCP Internal Medicine; Visit Provider Internal Medicine
DX: R53.1 Weakness (principal); R53.83 Other fatigue
CPT/HCPCS: 36591; 82024; 82088; 96374; J0834

== ENCOUNTER 2020-05-10 17:57 | Emergency (ER) | payer OTHER, SELFPAY ==
[2020-05-10 18:00] VITALS: BP 143/92; PULSE 75; RESP 16; TEMP 36.7; O2SAT 95; BMI 39.9
--- NOTE | 2020-05-10 18:07 | DI.US.S_ITS ---
PROCEDURE: US PERIPH VENOUS UP EXTREM LT INDICATIONS: LT ARM SWELLING TECHNIQUE: Real-time imaging, as well as color and pulse Doppler interrogation, was performed of the left upper extremity deep veins from the inferior neck to the antecubital fossa. COMPARISON: [facility], CT, CT CHEST ABDOMEN PELVIS WITH CONTRAST, 04/23/2020, 10:14. FINDINGS: There is filling defect in the internal jugular vein extending to the innominate vein, consistent with DVT. The visualized portions of the left subclavian vein, axillary, and brachial veins are free of intraluminal thrombus. Where physically possible, the veins are normally compressible. Color and pulse Doppler demonstrate normal intraluminal flow, with expected phasicity and pulsatility. Additional scanning of the cephalic and basilic veins of the superficial system demonstrate normal compressibility, without thrombus. IMPRESSION: Intraluminal thrombus is present in the internal jugular vein extending to the innominate vein consistent with DVT. Dictated by: Isabella Gonzalez M.D. on 05/10/2020 at 18:52 Approved by: Isabella Gonzalez M.D. on 05/10/2020 at 18:58
--- NOTE | 2020-05-10 19:02 | ED_ITS ---
HPI - Extremity Problem General Chief complaint: Extremity Problem,Nontraumatic Stated complaint: swelling in left arm, told to be seen by his Dr Time Seen by Provider: 05/10/20 18:54 Source: patient Mode of arrival: Ambulatory Limitations: no limitations History of Present Illness HPI Narrative: 64-year-old male nonsmoker with history of lymphoma, hypertension and asthma presents with a chief complaint of swelling, pain and redness in his left upper extremity for the past few days. He denies any specific injury. He denies any numbness, tingling or weakness. Had no fever or chills. He denies chest pain, shortness of breath nor fever or chills. MD Complaint: extremity pain and extremity swelling Onset (ago): day(s) Pain Consistency: constant Location: left Quality: aching Radiation: none Relieving factors: rest Exacerbating factors: range of motion and palpation Associated symptoms: denies other symptoms Related Data Home Medications Medication Instructions Recorded Confirmed albuterol sulfate 1 puff INHALATION Q6H PRN 01/18/19 10/17/19 aspirin 325 mg PO DAILY 07/31/19 10/17/19 metoprolol tartrate 50 mg PO BID 07/31/19 10/17/19 Previous Rx's Medication Instructions Recorded oxycodone-acetaminophen [Percocet] 1 tab PO Q4-6H PRN #14 tab 10/02/19 lisinopril 20 mg tablet 10 mg PO DAILY #30 tab 10/30/19 rivaroxaban [Xarelto] 20 mg PO DAILY #30 tab 05/10/20 Allergies Allergy/AdvReac Type Severity Reaction Status Date / Time No Known Drug Allergies Allergy Verified 05/10/20 18:00 Review of Systems Constitutional Constitutional: Denies chills, Denies fatigue, Denies fever(s), Denies frequent falls, Denies lethargy and Denies weakness Eyes Eyes: Denies change in vision, Denies eye discharge, Denies irritation and Denies loss of vision ENT Ears, Nose, Mouth, and Throat: Denies change in voice, Denies dizziness, Denies neck pain, Denies sore throat and Denies throat swelling Cardiovascular Cardiovascular: Denies chest pain, Denies irregular heart rhythm, Denies ligh theadedness, Denies palpitations, Denies dyspnea, Denies dyspnea on exertion and Denies orthopnea Respiratory Respiratory: Denies cough, Denies dyspnea, Denies dyspnea on exertion and Denies wheezing Gastrointestinal Gastrointestinal: Denies abdominal pain, Denies change in bowel habits, Denies diarrhea, Denies nausea and Denies vomiting Musculoskeletal Musculoskeletal: Denies neck pain and Denies numbness Integumentary/Breasts Skin/Breast: Denies pruritus, Reports erythema, Denies rash, Reports skin pain, Reports skin swelling and Denies wounds Neurologic Neurologic: Denies behavioral changes, Denies confusion, Denies dizziness, Denies frequent falls, Denies loss of vision, Denies numbness and Denies weakness Psychiatric Psychiatric: Denies anxiety, Denies behavioral changes, Denies confusion, Denies depression, Denies homicidal ideation and Denies suicidal ideation Endocrine Endocrine: Denies fatigue, Denies flushing and Denies palpitations Hematologic/Lymphatic Hematologic/Lymphatic: Denies easy bruising Allergic/Immunologic Allergic/Immunologic: Denies urticaria, Denies throat swelling and Denies wheezing Patient History Medical History Arthritis (Acute) Asthma (Chronic ~1984) Fracture (Acute) Hepatitis A (Resolved ~2012) Hypertension (Chronic) Knee pain (Acute) Lymphoma (Acute) MRSA (methicillin resistant Staphylococcus aureus) (Resolved ~2016) CARMELLA on CPAP (Acute) Port-A-Cath in place (Acute 05/04/19) Rectal fissure (Acute) Sciatica (Chronic ~2017) Surgical History Anesthesia (Resolved) H/O hernia repair (Resolved) History of surgery (Acute 07/31/19) History of vasectomy (Resolved) Hx of laparoscopy (Acute 04/11/19) Rupture of left quadriceps tendon (Acute ~09/2018) Status post incision and drainage (Acute 07/25/19) Social History household members: spouse Smoking Status: Never smoker alcohol intake: current Smoking Status: Never smoker alcohol intake frequency: a few times a week Substance Use Type: marijuana Exam Narrative Exam Narrative: GENERAL: [64] year old patient appears stated age. Well- nourished, well-developed patient, in mild distress. HEAD: Atraumatic. Normocephalic. EYES: Pupils equal round and reactive. Extraocular motions intact. No scleral icterus. No injection or drainage. ENT: Nose without bleeding, purulent drainage. Throat without erythema, tonsi llar hypertrophy or exudate. Airway patent. NECK: Trachea midline. Non tender CARDIOVASCULAR: Regular rate and rhythm without murmurs, gallops, or rubs. RESPIRATORY: Clear to auscultation. Breath sounds equal bilaterally. No wheezes, rales, or rhonchi. GASTROINTESTINAL: Abdomen soft, non-tender, nondistended. EXTREMITIES: Swelling, redness and warmth to much of LUE BACK: Nontender without deformity or crepitance. No flank tenderness. NEURO: AOx3. SKIN: No rash or erythema of visible areas Initial Vital Signs Initial Vital Signs: Vital Signs Temperature 98.0 F 05/10/20 18:00 Pulse Rate 75 05/10/20 18:00 Respiratory Rate 16 05/10/20 18:00 Blood Pressure 143/92 H 05/10/20 18:00 Pulse Oximetry 95 05/10/20 18:00 Course Orders Ordered: ED Orders 05/10/20 18:07 US periph venous up extrem lt Stat Vital Signs Vital signs: Vital Signs - 8 hr 05/10/20 18:00 Temperature 98.0 F Pulse Rate 75 Respiratory Rate 16 Blood Pressure 143/92 H Pulse Oximetry 95 MDM - Extremity (Nontraumatic) Lab Data Result diagrams: 05/10/20 19:30 05/10/20 19:30 Labs: Lab Results 05/10/20 05/10/20 05/10/20 Range/Units 19:30 19:30 19:30 WBC 8.1 (4.5-11.0) X10^3/uL RBC 4.14 L (4.5-5.9) X10^6/uL Hgb 13.7 (13.5-17.5) g/dL Hct 38.8 L (41-53) % MCV 93.8 (80-100) fL MCH 33.0 (26-34) PG MCHC 35.2 (30-36) % RDW 12.6 (11.6-14.8) % Plt Count 239 (150-400) X10^3/uL Neut % (Auto) 68.3 (50-75) % Lymph % (Auto) 14.1 L (25-40) % [place] % (Auto) 8.0 (3-14) % Eos % (Auto) 8.6 H (2-4) % Baso % (Auto) 1.0 (0-2) % Neut # (Auto) 5500 (9503-0700) /uL Lymph # (Auto) 1100 (7100-1195) /uL [place] # (Auto) 600 (0-900) /uL Eos # (Auto) 700 H (0-450) /uL Baso # (Auto) 100 (0-100) /uL PT 11.9 (10.1-12.7) SECONDS INR 1.0 (0.9-1.3) Sodium 138 (137-145) mmol/L Potassium 4.7 (3.4-5.1) mmol/L Chloride 106 (98-107) mmol/L Carbon Dioxide 29 (22-32) mmol/L BUN 19 (9-20) mg/dL Creatinine 0.86 (0.66-1.25) mg/dL Estimated GFR > 60.0 (>60) mL/min BUN/Creatinine Ratio 22.1 H (6-22) Glucose 129 H (80-110) mg/dL Calcium 9.3 (8.4-10.2) mg/dL Imaging Data Extremity x-ray #1: Radiologist's Impression: [place] [address] Ultrasound Report Signed Patient: Kevin Phipps [facility]#: [id number] : 7Acct:[id number] Age/Sex: 64 / MDate of Service: 05/10/20 Loc: ED Accession Number: [id number] Procedure: US periph venous up extrem lt Ordering Provider: Dee Dee Morrell- PROCEDURE: US PERIPH VENOUS UP EXTREM LT INDICATIONS: LT ARM SWELLING TECHNIQUE: Real-time imaging, as well as color and pulse Doppler interrogation, was performed of the left upper extremity deep veins from the inferior neck to the antecubital fossa. COMPARISON: [facility], CT, CT CHEST ABDOMEN PELVIS WITH CONTRAST, 04/23/2020, 10:14. FINDINGS: There is filling defect in the internal jugular vein extending to the innominate vein, consistent with DVT. The visualized portions of the left subclavian vein, axillary, and brachial veins are free of intraluminal thrombus. Where physically possible, the veins are normally compressible. Color and pulse Doppler demonstrate normal intraluminal flow, with expected phasicity and pulsatility. Additional scanning of the cephalic and basilic veins of the superficial system demonstrate normal compressibility, without thrombus. IMPRESSION: Intraluminal thrombus is present in the internal jugular vein extending to the innominate vein consistent with DVT. Dictated by: Isabella Gonzalez M.D. on 05/10/2020 at 18:52 Approved by: Isabella Gonzalez M.D. on 05/10/2020 at 18:58 Discharge Plan Departure Patient Disposition: Home Clinical Impression: Acute deep vein thrombosis (DVT) of left upper extremity Qualifiers: Affected thrombotic vein of extremity: unspecified vein of extremity Qualified Code(s): I82.622 - Acute embolism and thrombosis of deep veins of left upper extremity Discharge Date/Time: 05/10/20 20:19 Instructions: DI for Deep Vein Thrombosis Activity Restrictions/Additional Instructions: *You have been diagnosed with [ Left upper extremity and jugular DVT ] *What to do: *Take medications as directed: Sent to [facility] at your request *Follow up with your primary care provider in 2-3 days, call for an appointment. Let them know you were seen in the Emergency Department and that we ask that you be seen in follow up *Return to ER if you should have any new, worsening or concerning symptoms Prescriptions: New Xarelto 20 mg tablet 20 mg PO DAILY Qty: 30 RF: 0 No Action lisinopril 20 mg tablet 10 mg PO DAILY Qty: 30 RF: 0 aspirin 325 mg Tablet 325 mg PO DAILY RF: 0 metoprolol tartrate 50 mg Tablet 50 mg PO BID RF: 0 albuterol sulfate 90 mcg/actuation HFA aerosol inhaler 1 puff Inhalation Q6H PRN (Reason: Shortness Of Breath Or Wheezing) RF: 0 oxycodone-acetaminophen [Percocet] 5-325 mg tablet 1 tab PO Q4-6H PRN (Reason: painful procedure) Qty: 14 RF: 0 Referrals: Susanne Stuart MD [Primary Care Provider] -
[2020-05-10 19:43] LABS: Add Manual Diff / Slide Review NO; Basophils Absolute Auto 100 /uL (0-100); Eosinophils Absolute Auto 700 /uL (0-450); Eosinophils Percent Auto 8.6 % (2-4); Hematocrit 38.8 % (41-53); Hemoglobin 13.7 g/dL (13.5-17.5); Lymphocytes Absolute Auto 1100 /uL (1100-4500); Lymphocytes Percent Auto 14.1 % (25-40); Mean Corpuscular HGB Conc 35.2 % (30-36); Mean Corpuscular Volume 93.8 fL (80-100); Monocytes Absolute Auto 600 /uL (0-900); Neutrophils Absolute Auto 5500 /uL (1500-7000); Neutrophils Percent Auto 68.3 % (50-75); Platelet Count 239 X10^3/uL (150-400); Red Blood Cell Count 4.14 X10^6/uL (4.5-5.9); Red Cell Distribution Width 12.6 % (11.6-14.8); White Blood Cell Count 8.1 X10^3/uL (4.5-11.0)
[2020-05-10 19:52] LABS: Prothrombin Time 11.9 SECONDS (10.1-12.7)
[2020-05-10 19:56] LABS: BUN Creatinine Ratio 22.1 (6-22); Blood Urea Nitrogen 19 mg/dL (9-20); Calcium 9.3 mg/dL (8.4-10.2); Carbon Dioxide 29 mmol/L (22-32); Chloride 106 mmol/L (98-107); Estimated Glomerular Filt Rate > 60.0 mL/min (>60); Glucose 129 mg/dL (80-110); HEMOLYSIS < 15 (0-50); Potassium 4.7 mmol/L (3.4-5.1); Sodium 138 mmol/L (137-145)
--- NOTE | 2020-05-10 20:05 | PC.NURSE ---
pt c/o left arm swelling started about a week ago, past 2 days swelling got much worse. he was out on a boat, just now able to seek care.
[2020-05-10 20:18] VITALS: BP 141/86; RESP 22; TEMP 37; O2SAT 96
== END 2020-05-10 20:19 | disposition home or self-care (01) ==
PROVIDERS: Emergency Provider Emergency Medicine; PCP Internal Medicine
DX: I82.622 Acute embolism and thrombosis of deep veins of left upper extremity (principal)
CPT/HCPCS: 36415; 80048; 85025; 85610; 93971; 99283; 99284

== ENCOUNTER → 2020-05-14 09:53 | Outpatient (CLI) | payer OTHER, SELFPAY ==
[2020-05-15 00:27] LABS: COVID19 Sendout Not Detected (Not Detect)
== END ==
PROVIDERS: PCP Internal Medicine; Visit Provider Nurse Practitioner
DX: Z01.812 Encounter for preprocedural laboratory examination (principal)
CPT/HCPCS: 87635

== ENCOUNTER 2020-05-16 10:42 | Day surgery (SDC) | payer OTHER, SELFPAY ==
[2020-05-14 07:37] VITALS: BMI 39.3
[2020-05-16 11:05] VITALS: BP 143/87; PULSE 67; RESP 20; TEMP 36.6; O2SAT 96; BMI 39.1
[2020-05-16] MEDS: LACTATED RINGERS 1,000 ML 42 ML IV ×2 (11:23→13:00)
--- NOTE | 2020-05-16 12:01 | P.HP_ITS ---
History of Present Illness History of Present Illness Date Patient Seen: 05/16/20 Time Patient Seen: 12:02 Chief complaint: [id number] Narrative: Mr. 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 He has a port that has been flushed intermittently with decreased frequency. He developed a DVT in his left internal jugular and in non a mint vein based on duplex imaging after he was noted to have swelling in his left arm. I have been asked to remove his port. He was placed on blood thinner on Wednesday which he stopped after yesterday morning's dose at my request(Pradaxa). He had been on blood thinner last year due to atrial fibr illation but underwent a successful ablation and it was subsequently stopped. Patient History Medical History (Updated 05/16/20 @ 12:09 by Gustavo Benedict MD) Arthritis (Acute) Asthma (Chronic ~1984) Fracture (Acute) Hepatitis A (Resolved ~2012) Hypertension (Chronic) Knee pain (Acute) Lymphoma (Acute) MRSA (methicillin resistant Staphylococcus aureus) (Resolved ~2016) CARMELLA on CPAP (Acute) Port-A-Cath in place (Acute 05/04/19) Rectal fissure (Acute) Sciatica (Chronic ~2017) Temporomandibular joint pain (Acute) Surgical History Anesthesia (Resolved) H/O hernia repair (Resolved) History of lymph node biopsy (Acute) History of surgery (Acute 07/31/19) History of vasectomy (Resolved) Hx of laparoscopy (Acute 04/11/19) Rupture of left quadriceps tendon (Acute ~09/2018) Status post incision and drainage (Acute 07/25/19) Family & Social History Social History: household members spouse Prior Living Arrangements House Tobacco & Substance use: Smoking Status Never smoker alcohol intake current alcohol intake frequency a few times a week Substance Use Type marijuana Meds Home Medications and Allergies Home Medications Medication Instructions Recorded Confirmed Type albuterol sulfate 1 puff INHALATION Q6H PRN 01/18/19 05/16/20 History dabigatran etexilate [Pradaxa] 150 mg PO BID 05/15/20 05/16/20 History diltiazem HCl 120 mg PO BID 05/15/20 05/16/20 History Allergies Allergy/AdvReac Type Severity Reaction Status Date / Time prednisone AdvReac Severe Put me Verified 05/15/20 10:49 into Afib losartan AdvReac Intermediate Arrythmia, Verified 05/15/20 10:43 tingling in hands Review of Systems Review of Systems Narrative: No cough or cold at this time. No chest pain. Has hypertension on medication. No black or bloody bowel movements. Swelling in the arm is resolved. Exam Vital Signs (past 8 hours): - 05/16/20 11:05 Temperature 97.9 F Pulse Rate 67 Respiratory Rate 20 Blood Pressure 143/87 H Pulse Oximetry 96 Oxygen Delivery Method Room Air Narrative Exam Narrative: Lungs are clear. Heart regular rate and rhythm without murmur gallop. Abdomen is protuberant soft nontender without mass. No significant edema left arm. No rashes or tenderness of his chest wall in the area of the port. This is on the left infraclavicular fossa. Patient is alert and oriented x3 Assessment & Plan Assessment and plan (1) Acute deep vein thrombosis (DVT) of left upper extremity: Problem details: Plan to remove the port. I discussed this with him. Expect to numb this remove the port close it up and then he can resume his Pradaxa unless there is unusual bleeding. There is a small chance that I could dislodge clot and give him a pulmonary embolism. Small risk of bleeding or infection. All questions were answered. He appears to understand wishes to proceed. Qualifiers: Affected thrombotic vein of extremity: unspecified vein of extremity Qualified Code(s): I82.622 - Acute embolism and thrombosis of deep veins of left upper extremity Status: Acute
--- NOTE | 2020-05-16 12:10 | PM.PREOP ---
Pre-operative Note COVID-19 COVID-19 status: Negative Result date/Date tested (Pos, Neg/Pending): 05/13/20 Interval Note History & Physical reviewed/Exam performed by Physician: Yes Changes to H&P: No ASA Class (for procedural sedation): III
[2020-05-16] MEDS: CEFAZOLIN 2 GM/100 ML FROZ.PIGGY IV (13:09)
--- NOTE | 2020-05-16 13:23 | SUR.OPER ---
Supine on padded OR bed, head on pillow, arm padded and tucked at side, legs uncrossed, safety belt at thigh, tape over blanket over lower legs .
[2020-05-16] MEDS: BUPIVACAINE 0.5% (PF) VIAL 30 ML INJ (13:26)
--- NOTE | 2020-05-16 13:43 | PM.OP.1 ---
Operative Date/Time/Diagnoses Date of procedure: 05/16/20 Time of procedure: 13:43 Pre-op diagnosis: DVT left internal jugular/inominate vein with Port-A-Cath on the left subclavian. Post-op diagnosis: same Procedure & Clinicians Procedure: Removal Port-A-Cath Same procedure as scheduled: Yes Indications: DVT Surgeon: Gustavo Benedict Click Yes if Unassisted: Yes Anesthesia Type: MAC +/- Operative Notes Findings: Port removed entirely. No shortness of breath or chest pain. Closure Type: primary Specimen(s): none sent Estimated Blood Loss (mL): 5 Blood products transfused: none Procedure in detail: The patient is placed supine on the operating room table and underwent monitored anesthesia care. He was prepped and draped in the usual fashion. Local anesthetic was infiltrated in a field block fashion around the port. Incision is made through the old scar and carried down level the port. The port was excised in its entirety including the catheter. A pursestring of 3 0 Vicryl was placed around the catheter site prior to pulling it out of the vein. This was cinched down to close off that channel. Once the port was removed in its entirety the subcu was closed with interrupted 3 0 Vicryl and skin was closed running 4 0 Vicryl subcuticular stitch and Steri-Strips. Meticulous hemostasis was achieved throughout the procedure. Complications: none Post-operative Condition: stable Disposition: same day surgery Plan for aftercare: Follow-up is needed.
[2020-05-16 13:47] VITALS: BP 170/88; PULSE 58; RESP 16; TEMP 36.2; O2SAT 97
[2020-05-16 14:00] VITALS: BP 129/88; BP 179/97; PULSE 57; PULSE 62; TEMP 36.3; O2SAT 96; O2SAT 97
== END 2020-05-16 14:23 | disposition home or self-care (01) ==
PROVIDERS: PCP Internal Medicine; Referring Provider Specialist; Visit Provider Specialist
PROC: (CPT 36590; principal; 2020-05-16 11:45)
DX: I82.622 Acute embolism and thrombosis of deep veins of left upper extremity (principal); Z45.2 Encounter for adjustment and management of vascular access device; C81.90 Hodgkin lymphoma, unspecified, unspecified site; J45.909 Unspecified asthma, uncomplicated; G47.33 Obstructive sleep apnea (adult) (pediatric); I10 Essential (primary) hypertension; I45.10 Unspecified right bundle-branch block
CPT/HCPCS: 36590; J0690; J2250; J2704; J3010